=== PATIENT | female | born 1950 | race Caucasian/White ===

== ENCOUNTER → 2017-01-06 | Outpatient (CLI) | payer OTHER ==
--- NOTE | 2017-01-06 16:32 | CT ---
EXAMINATION TYPE: CT brain wo con DATE OF EXAM: 01/06/2017 COMPARISON: NONE HISTORY: 66-year-old female Posterior injury on 01/02/17. Complains of headache and pressure TECHNIQUE: Examination was done in axial plane without intravenous contrast. Coronal and sagittal r econstructions performed. CT DLP: 1036 mGycm Automated exposure control for dose reduction was used. FINDINGS: There is no evidence of acute intracranial hemorrhage, acute ischemic changes, mass, mass-effect, or extra-axial fluid collection. There is no effacement of cerebral sulci or basal subarachnoid cister ns. There is no hydrocephalus. There is no midline shift. Christine-white matter distinction is preserv ed. Paranasal sinuses and mastoid air cells are well pneumatized. Orbits and globes are intact. IMPRESSION: No acute intracranial abnormality seen.
--- NOTE | 2017-01-07 22:26 | XR ---
EXAMINATION TYPE: XR cervical spine comp DATE OF EXAM: 01/06/2017 COMPARISON: NONE HISTORY: 66 year-old female post traumatic intractable headache TECHNIQUE: 6 years FINDINGS: There is facet and uncovertebral joint arthropathy particularly in the mid to lower cervical spine. O n the right, this contributes to mild to moderate bony spondylotic neuroforaminal narrowing at C6-C7. On the left, there is moderate neuroforaminal narrowing at C6-C7 and mild at C7-T1. Moderate disc/endplate degenerative change particularly at C6-C7. Alignment is maintained. No predent al space widening or prevertebral soft tissue swelling. On the odontoid view, the C1 and C2 lateral masses are aligned. IMPRESSION: Moderate spondylotic change especially in the mid to lower cervical spine with variable mild to moder ate neuroforaminal narrowing, greatest on the left at C6-C7.
== END | disposition home or self-care (01) ==
LOC: RADCTMAIN 15:48
PROVIDERS: ATTEND Internal Medicine Geriatric Medicine
DX: M99.71 Connective tissue and disc stenosis of intervertebral foramina of cervical region (principal); M47.812 Spondylosis without myelopathy or radiculopathy, cervical region; G44.311 Acute post-traumatic headache, intractable
CPT/HCPCS: 70450; 72050

== ENCOUNTER 2018-10-20 19:46 | Observation (INO) | payer MEDICARE, OTHER ==
[2018-10-20] MEDS ORDERED: MORPHINE SULFATE 4 MG/ML SYRINGE IV STA (21:10)
[2018-10-20] MEDS ORDERED: SODIUM CHLORIDE 0.9% 1,000 ML IV STA (21:10)
[2018-10-20 22:05] LABS: Basophils % (A) 0 %; Eosinophils # (A) 0.1 k/uL (0-0.7); Eosinophils % (A) 1 %; HCT 36.7 % (34.0-46.0); HGB 12.3 gm/dL (11.4-16.0); Lymphocytes # (A) 1.2 k/uL (1.0-4.8); Lymphocytes % (A) 10 %; MCH 28.8 pg (25.0-35.0); MCHC 33.4 g/dL (31.0-37.0); MCV 86.2 fL (80.0-100.0); Monocytes # (A) 0.7 k/uL (0-1.0); Monocytes % (A) 6 %; Neutrophils # (A) 10.2 k/uL (1.3-7.7); Neutrophils % (A) 81 %; Platelet Count 275 k/uL (150-450); RBC 4.26 m/uL (3.80-5.40); RDW 13.3 % (11.5-15.5); WBC 12.5 k/uL (3.8-10.6)
[2018-10-20 22:16] LABS: ALT 27 U/L (9-52); AST 21 U/L (14-36); African American GFR (CKD) >90 (>60 ml/min/1.73 sqM); Alkaline Phosphatase 146 U/L (38-126); Anion Gap 11 mmol/L; Blood Urea Nitrogen 12 mg/dL (7-17); Calcium 9.2 mg/dL (8.4-10.2); Carbon Dioxide 26 mmol/L (22-30); Chloride 97 mmol/L (98-107); Glucose 106 mg/dL (74-99); Potassium 4.5 mmol/L (3.5-5.1); Sodium 134 mmol/L (137-145); Total Bilirubin 0.7 mg/dL (0.2-1.3); Total Protein 6.7 g/dL (6.3-8.2)
--- NOTE | 2018-10-20 23:02 | CT ---
EXAM: CT Abdomen and Pelvis With Intravenous Contrast CLINICAL HISTORY: ITS.REASON CT Reason: abdominal pain TECHNIQUE: Axial computed tomography images of the abdomen and pelvis with intravenous contrast. CTDI is 21 mGy and DLP is 1027 mGy-cm. This CT exam was performed using one or more of the following dose reduction techniques: automated exposure control, adjustment of the mA and/or kV according to patient size, and/or use of iterative reconstruction technique. COMPARISON: 09/20/12 FINDINGS: Lung bases: Unremarkable. No mass. No consolidation. ABDOMEN: Liver: Unremarkable. No mass. Gallbladder and bile ducts: Unremarkable. No calcified stones. No ductal dilation. Pancreas: Unremarkable. No mass. No ductal dilation. Spleen: Unremarkable. No splenomegaly. Adrenals: Unremarkable. No mass. Kidneys and ureters: Unremarkable. No solid mass. No hydronephrosis. Stomach and bowel: Abnormal wall thickening and inflammatory changes surrounding numerous diverticula in the distal descending and sigmoid colon compatible with diverticulitis. Large duodenal diverticulum. No obstruction. PELVIS: Appendix: No findings to suggest acute appendicitis. Bladder: Unremarkable. No mass. Reproductive: Unremarkable as visualized. ABDOMEN and PELVIS: Intraperitoneal space: Unremarkable. No free air. No significant fluid collection. Bones/joints: No acute fracture. No dislocation. Soft tissues: Unremarkable. Vasculature: Unremarkable. No abdominal aortic aneurysm. Lymph nodes: Unremarkable. No enlarged lymph nodes. IMPRESSION: Acute diverticulitis involving the distal descending and sigmoid colon. No evidence of perforation or abscess. Large duodenal diverticulum.
[2018-10-20 23:11] LABS: Appearance,Urine Clear (Clear); Bilirubin,Urine Negative (Negative); Blood,Urine Negative (Negative); Color,Urine Light Yellow; Glucose,Urine (UA) Negative (Negative); Ketones,Urine 1+ (Negative); Leukocyte Esterase,Urine Negative (Negative); Nitrite,Urine Negative (Negative); Protein,Urine Negative (Negative); Specific Gravity,Urine 1.013 (1.001-1.035); Urobilinogen,Urine <2.0 mg/dL (<2.0)
[2018-10-20] MEDS ORDERED: NALOXONE 0.4 MG/ML 1 ML VIAL IV PRN (23:44)
--- NOTE | 2018-10-20 23:47 | ED ---
General Adult HPI - General Chief complaint: Abdominal Pain Stated complaint: Abd pain Time Seen by Provider: 10/20/18 20:44 Source: patient, RN notes reviewed, old records reviewed Mode of arrival: ambulatory Limitations: no limitations - History of Present Illness Initial comments: 67-year-old female patient presents to ED with 5 days of left lower quadrant pain. Patient does have a history of diverticulitis, states this feels similar. Patient also reports some waxing and waning fevers and chills. Denies any other complaints at this time. Systemic: Pt denies fatigue, rash. Pt denies weakness, night sweats, weight loss. Neuro: Pt denies headache, visual disturbances, syncope or pre-syncope. HEENT: Pt denies ocular discharge or irritation, otalgia, rhinorrhea, pharyngitis or notable lymphadenopathy. Cardiopulmonary: Pt denies chest pain, SOB, heart palpitations, dyspnea on exertion. Abdominal/GI: Pt denies n/v/d. : Pt denies dysuria, burning w/ urination, frequency/urgency. Denies new onset urinary or bowel incontinence. MSK: Pt denies myalgia, loss of strength or function in extremities. Neuro: Pt denies new onset weakness, paresthesias. - Related Data Home Medications Medication Instructions Recorded Confirmed ALPRAZolam [Xanax] 0.25 mg PO BID PRN 11/16/14 11/16/14 Acetaminophen Tab [Tylenol] 500 mg PO Q6H PRN 11/16/14 11/16/14 Azilsartan Medoxomil [Edarbi] 40 mg PO DAILY 11/16/14 11/16/14 Hydrocortisone Cream 1 applic TOPICAL BID PRN 11/16/14 11/16/14 [Hydrocortisone 2.5% Cream] Spironolactone [Aldactone] 25 mg PO DAILY 11/16/14 11/16/14 Previous Rx's Medication Instructions Recorded Loratadine [Claritin] 10 mg PO DAILY tab 11/18/14 Nebivolol [Bystolic] 5 mg PO DAILY #30 tab 11/18/14 Allergies Allergy/AdvReac Type Severity Reaction Status Date / Time codeine Allergy Itching Verified 10/20/18 20:08 Penicillins Allergy Rash/Hives Verified 10/20/18 20:08 Sulfa (Sulfonamide Allergy Unknown Verified 10/20/18 20:08 Antibiotics) Review of Systems ROS Statement: Those systems with pertinent positive or pertinent negative responses have been documented in the HPI. ROS Other: All systems not noted in ROS Statement are negative. Past Medical History Past Medical History: Chest Pain / Angina, Hyperlipidemia, Hypertension, Osteoarthritis (OA), Sleep Apnea/CPAP/BIPAP Additional Past Medical History / Comment(s): Recurrent urinary tract infections.diverticulosis History of Any Multi-Drug Resistant Organisms: None Reported Past Surgical History: Appendectomy, Heart Catheterization, Tonsillectomy Additional Past Surgical History / Comment(s): exploratory lap, tubal ligation. Past Anesthesia/Blood Transfusion Reactions: Previous Problems w/ Anesthesia Additional Past Anesthesia/Blood Transfusion Reaction / Comment(s): STATES HARD TO WAKE UP AFTER COLONOSCOPY Past Psychological History: No Psychological Hx Reported Smoking Status: Never smoker Past Alcohol Use History: Occasional Past Drug Use History: None Reported - Past Family History Mother Family Medical History: Coronary Artery Disease (CAD) (Mother at age of 60 from the CAD she had a PCI), Myocardial Infarction ([place]) Additional Family Medical History / Comment(s): ANGIOPLASTY Father Family Medical History: Coronary Artery Disease (CAD) (Father at age of 58 from CAD/[place]), Myocardial Infarction ([place]) Additional Family Medical History / Comment(s): ANGIOPLASTY Sister(s) Family Medical History: No Reported History (Patient has 2 sisters no major medical problems) Brother(s) Family Medical History: Coronary Artery Disease (CAD) (Patient had 2 brothers one of them after CABG) Son(s) Family Medical History: No Reported History (Patient has 2 boys no major medical problems.) General Exam - General Exam Comments Initial Comments: Constitutional: NAD, AOX3, Pt has pleasant affect. HEENT: NC/AT, trachea midline, neck supple, no lymphadenopathy. Posterior pharynx non erythematous, without exudates. External ears appear normal, without discharge. Mucous membranes moist. Eyes PERRLA, EOM intact. There is no scleral icterus. No pallor noted. Cardiopulmonary: RRR, no murmurs, rubs or gallops, no JVD noted. Lungs CTAB in anterior and posterior cuellar. No peripheral edema. Abdominal exam: Abdomen soft and non-distended. Abdomen moderately tender to palpation left lower quadrant, mild guarding, no rigidity.. Bowel sounds active in LLQ. No hepatosplenomegaly. No ecchymosis Neuro: CN II-XII grossly intact. No nuchal rigidity. No raccon eyes, no martell sign, no hemotympanum. No cervical spinal tenderness. MSK: No posterior calf tenderness bilaterally, homans sign negative bilaterally. Posterior tibialis and radial pulse +2 bilaterally. Sensation intact in upper and lower extremities. Full active ROM in upper and lower extremities, 5/5 stregnth. Limitations: no limitations Course Vital Signs 10/20/18 20:04 Temperature 99.0 F Pulse Rate 102 H Respiratory 17 Rate Blood Pressure 157/87 O2 Sat by Pulse 98 Oximetry Medical Decision Making - Medical Decision Making 67-year-old female patient presents to ED with 5 days of left lower quadrant pain. Patient does have a history of diverticulitis, states this feels similar. Patient also reports some waxing and waning fevers and chills. Denies any other complaints at this time. Patient also has stable, afebrile. Physical exam displayed: Abdomen soft and non-distended. Abdomen moderately tender to palpation left lower quadrant, mild guarding, no rigidity.. Bowel sounds active in LLQ. No hepatosplenomegaly. No ecchymosis. Left investigation revealed mild cytosis 12.5. CMP non-impressive. UA negative. CT abdomen and pelvis displayed acute diverticulitis involving the distal descending and sigmoid colon, no evidence of perforation or abscess. Patient will be admitted for further evaluation and IV antibiotics. Case discussed with Dr. Poe. - Lab Data Result diagrams: 10/20/18 21:47 10/20/18 21:47 Lab Results 10/20/18 10/20/18 10/20/18 Range/Units 21:47 21:47 21:47 WBC 12.5 H (3.8-10.6) k/uL RBC 4.26 (3.80-5.40) m/uL Hgb 12.3 (11.4-16.0) gm/dL Hct 36.7 (34.0-46.0) % MCV 86.2 (80.0-100.0) fL MCH 28.8 (25.0-35.0) pg MCHC 33.4 (31.0-37.0) g/dL RDW 13.3 (11.5-15.5) % Plt Count 275 (150-450) k/uL Neutrophils % 81 % Lymphocytes % 10 % Monocytes % 6 % Eosinophils % 1 % Basophils % 0 % Neutrophils # 10.2 H (1.3-7.7) k/uL Lymphocytes # 1.2 (1.0-4.8) k/uL Monocytes # 0.7 (0-1.0) k/uL Eosinophils # 0.1 (0-0.7) k/uL Basophils # 0.0 (0-0.2) k/uL Sodium 134 L (137-145) mmol/L Potassium 4.5 (3.5-5.1) mmol/L Chloride 97 L (98-107) mmol/L Carbon Dioxide 26 (22-30) mmol/L Anion Gap 11 mmol/L BUN 12 (7-17) mg/dL Creatinine 0.65 (0.52-1.04) mg/dL Est GFR (CKD-EPI)AfAm >90 (>60 ml/min/1.73 sqM) Est GFR (CKD-EPI)NonAf >90 (>60 ml/min/1.73 sqM) Glucose 106 H (74-99) mg/dL Plasma Lactic Acid Lester 0.8 (0.7-2.0) mmol/L Calcium 9.2 (8.4-10.2) mg/dL Total Bilirubin 0.7 (0.2-1.3) mg/dL AST 21 (14-36) U/L ALT 27 (9-52) U/L Alkaline Phosphatase 146 H (38-126) U/L Total Protein 6.7 (6.3-8.2) g/dL Albumin 4.0 (3.5-5.0) g/dL Lipase 40 (23-300) U/L Urine Color Urine Appearance (Clear) Urine pH (5.0-8.0) Ur Specific [place] (1.001-1.035) Urine Protein (Negative) Urine Glucose (UA) (Negative) Urine Ketones (Negative) Urine Blood (Negative) Urine Nitrite (Negative) Urine Bilirubin (Negative) Urine Urobilinogen (<2.0) mg/dL Ur Leukocyte Esterase (Negative) 10/20/18 Range/Units 22:55 WBC (3.8-10.6) k/uL RBC (3.80-5.40) m/uL Hgb (11.4-16.0) gm/dL Hct (34.0-46.0) % MCV (80.0-100.0) fL MCH (25.0-35.0) pg MCHC (31.0-37.0) g/dL RDW (11.5-15.5) % Plt Count (150-450) k/uL Neutrophils % % Lymphocytes % % Monocytes % % Eosinophils % % Basophils % % Neutrophils # (1.3-7.7) k/uL Lymphocytes # (1.0-4.8) k/uL Monocytes # (0-1.0) k/uL Eosinophils # (0-0.7) k/uL Basophils # (0-0.2) k/uL Sodium (137-145) mmol/L Potassium (3.5-5.1) mmol/L Chloride (98-107) mmol/L Carbon Dioxide (22-30) mmol/L Anion Gap mmol/L BUN (7-17) mg/dL Creatinine (0.52-1.04) mg/dL Est GFR (CKD-EPI)AfAm (>60 ml/min/1.73 sqM) Est GFR (CKD-EPI)NonAf (>60 ml/min/1.73 sqM) Glucose (74-99) mg/dL Plasma Lactic Acid Lester (0.7-2.0) mmol/L Calcium (8.4-10.2) mg/dL Total Bilirubin (0.2-1.3) mg/dL AST (14-36) U/L ALT (9-52) U/L Alkaline Phosphatase (38-126) U/L Total Protein (6.3-8.2) g/dL Albumin (3.5-5.0) g/dL Lipase (23-300) U/L Urine Color Light Yellow Urine Appearance Clear (Clear) Urine pH 7.0 (5.0-8.0) Ur Specific [place] 1.013 (1.001-1.035) Urine Protein Negative (Negative) Urine Glucose (UA) Negative (Negative) Urine Ketones 1+ H (Negative) Urine Blood Negative (Negative) Urine Nitrite Negative (Negative) Urine Bilirubin Negative (Negative) Urine Urobilinogen <2.0 (<2.0) mg/dL Ur Leukocyte Esterase Negative (Negative) Disposition Clinical Impression: Acute diverticulitis Disposition: ADMITTED IP TO THIS HOSP Condition: Fair Is patient prescribed a controlled substance at d/c from ED?: No Referrals: Russel Alva MD [Primary Care Provider] - 1-2 days
[2018-10-21] MEDS ORDERED: MORPHINE SULFATE 4 MG/ML SYRINGE IV PRN
[2018-10-21] MEDS: SODIUM CHLORIDE 0.9% 1,000 ML IV SCH ×2 (00:19→10:13)
[2018-10-21] MEDS: LEVOFLOXACIN 750MG-D5W PMX 750 MG in DEXTROSE/WATER 1 150ML.BAG IVPB SCH (00:20)
[2018-10-21 01:51] VITALS: BMI 32.8
[2018-10-21] MEDS: metroNIDAZOLE-NS PMX 500 MG in SALINE 1 100ML.BAG IVPB SCH ×3 (01:59→17:26)
[2018-10-21 08:41] LABS: ALT 28 U/L (9-52); AST 16 U/L (14-36); African American GFR (CKD) >90 (>60 ml/min/1.73 sqM); Albumin 3.3 g/dL (3.5-5.0); Alkaline Phosphatase 108 U/L (38-126); Anion Gap 8 mmol/L; Blood Urea Nitrogen 8 mg/dL (7-17); Calcium 8.5 mg/dL (8.4-10.2); Carbon Dioxide 27 mmol/L (22-30); Chloride 103 mmol/L (98-107); Glucose 94 mg/dL (74-99); Potassium 4.3 mmol/L (3.5-5.1); Sodium 138 mmol/L (137-145); Total Bilirubin 0.6 mg/dL (0.2-1.3); Total Protein 5.9 g/dL (6.3-8.2)
[2018-10-21 08:56] LABS: Basophils % (A) 0 %; Eosinophils # (A) 0.1 k/uL (0-0.7); Eosinophils % (A) 1 %; HCT 33.5 % (34.0-46.0); HGB 10.9 gm/dL (11.4-16.0); Lymphocytes # (A) 1.1 k/uL (1.0-4.8); Lymphocytes % (A) 13 %; MCH 29.2 pg (25.0-35.0); MCHC 32.6 g/dL (31.0-37.0); MCV 89.4 fL (80.0-100.0); Mean Platelet Volume 7.3; Monocytes # (A) 0.6 k/uL (0-1.0); Monocytes % (A) 7 %; Neutrophils # (A) 6.8 k/uL (1.3-7.7); Neutrophils % (A) 78 %; Platelet Count 253 k/uL (150-450); RBC 3.74 m/uL (3.80-5.40); RDW 14.1 % (11.5-15.5); WBC 8.7 k/uL (3.8-10.6)
[2018-10-21] MEDS ORDERED: ALPRAZolam 0.25 MG TAB PO PRN (18:28)
--- NOTE | 2018-10-21 18:34 | P.HPIM ---
History of Present Illness H&P Date: 10/21/18 Chief Complaint: Left lower quadrant abdominal pain This 67-year-old pleasant lady, follows with Dr. Alva, has underlying history off hypertension, and hypertensive cardiovascular disease, history of sleep apnea not currently on CPAP, and diverticular disease, family history of colon cancer on the mother. Admitted to the emergency room secondary to a 5 day episode of abdominal pain, left lower quadrant area, with colicky features, denies any melena or hematochezia, she has some fever and chills, she was seen in urgent care yesterday, was given Cipro and Flagyl for which patient took a days worth of doses, patient did not respond as quickly as she hadn't the past, now requiring ER evaluation secondary to increasing severity of abdominal pain. Her last colonoscopy was 5 years ago by elastic assembler Dr. Roblero at [facility] and is due to have one done in December 2018. In the emergency room CAT scan of the abdomen was performed, gallbladder is unremarkable without ductal dilatation, pancreas is normal, spleen and adrenals normal, kidneys ureter are normal, there is abnormal wall thickening and inflammatory changes surrounding diverticula in the distal descending and sigmoid colon compatible with diverticulitis, there is a large duodenal diverticula no obstruction no perforation no lymphadenopathy Review of Systems Constitutional: Reports anorexia, Reports chills, Reports fever, Reports night sweats, Reports poor appetite Ears, nose, mouth and throat: Reports as per HPI, Denies ant. neck pain, Denies bleeding gums, Denies dental pain, Denies dysphagia, Denies epistaxis, Denies headache, Denies hoarseness, Denies mouth pain, Denies nasal congestion, Denies nasal discharge, Denies neck fullness/pressure, Denies neck lump, Denies nose pain, Denies odynophagia, Denies post-nasal drip, Denies sinus pain, Denies sinus pressure, Denies swelling in mouth, Denies swelling in throat, Denies sore throat, Denies vertigo, Denies voice changes Cardiovascular: Reports as per HPI, Denies chest pain, Denies claudication, Denies decreased exercise tolerance, Denies dyspnea on exertion, Denies edema, Denies high blood pressure, Denies irregular heart beat, Denies leg edema, Denies lightheadedness, Denies orthopnea, Denies palpitations, Denies paroxysmal nocturnal dyspnea, Denies phlebitis, Denies rapid heart beat, Denies shortness of breath, Denies syncope Gastrointestinal: Reports as per HPI, Reports abdominal pain (Left lower quadrant), Reports nausea Genitourinary: Reports as per HPI Menstruation: Reports as per HPI, Reports postmenopausal Musculoskeletal: Reports as per HPI Integumentary: Reports as per HPI Neurological: Reports as per HPI Psychiatric: Reports as per HPI Endocrine: Reports as per HPI Hematologic/Lymphatic: Reports as per HPI Allergic/Immunologic: Reports as per HPI Past Medical History Past Medical History: Chest Pain / Angina, Hyperlipidemia, Hypertension, Osteoarthritis (OA), Sleep Apnea/CPAP/BIPAP Additional Past Medical History / Comment(s): Recurrent urinary tract infections.diverticulosis History of Any Multi-Drug Resistant Organisms: None Reported Past Surgical History: Appendectomy, Heart Catheterization, Tonsillectomy Additional Past Surgical History / Comment(s): exploratory lap, tubal ligation. Past Anesthesia/Blood Transfusion Reactions: Previous Problems w/ Anesthesia Additional Past Anesthesia/Blood Transfusion Reaction / Comment(s): STATES HARD TO WAKE UP AFTER COLONOSCOPY Past Psychological History: No Psychological Hx Reported Smoking Status: Never smoker Past Alcohol Use History: Occasional Past Drug Use History: None Reported - Past Family History Mother Family Medical History: Cancer (: Cancer of colon), Coronary Artery Disease (CAD), Myocardial Infarction ([place]) Additional Family Medical History / Comment(s): ANGIOPLASTY Father Family Medical History: Coronary Artery Disease (CAD), Myocardial Infarction ([place]) Additional Family Medical History / Comment(s): ANGIOPLASTY Sister(s) Family Medical History: No Reported History Brother(s) Family Medical History: Coronary Artery Disease (CAD) Son(s) Family Medical History: No Reported History Medications and Allergies Home Medications Medication Instructions Recorded Confirmed Type Acetaminophen Tab [Tylenol] 500 mg PO Q6H PRN 11/16/14 10/21/18 History ALPRAZolam [Xanax] 0.5 - 1 tab PO DAILY PRN 10/21/18 10/21/18 History Ciprofloxacin HCl [Cipro] 500 mg PO BID 10/21/18 10/21/18 History Ibuprofen [Motrin] 600 mg PO TID PRN 10/21/18 10/21/18 History amLODIPine BESYLATE [Norvasc] 2.5 mg PO DAILY 10/21/18 10/21/18 History metroNIDAZOLE [Flagyl] 500 mg PO TID 10/21/18 10/21/18 History Allergies Allergy/AdvReac Type Severity Reaction Status Date / Time codeine Allergy Itching Verified 10/21/18 08:46 Penicillins Allergy Rash/Hives Verified 10/21/18 08:46 Sulfa (Sulfonamide Allergy Unknown Verified 10/21/18 08:46 Antibiotics) Physical Exam Vitals: Vital Signs Temp Pulse Pulse Resp BP BP BP 10/21/18 14:49 98.3 F 82 16 132/77 10/21/18 07:30 98.3 F 84 16 127/78 10/21/18 01:54 98.3 F 88 18 134/82 10/21/18 01:20 98.3 F 82 18 148/72 10/21/18 00:20 98.8 F 71 18 148/82 10/20/18 20:04 99.0 F 102 H 17 157/87 Pulse Ox 10/21/18 14:49 95 10/21/18 07:30 94 L 10/21/18 01:54 96 10/21/18 01:20 99 10/21/18 00:20 99 10/20/18 20:04 98 Intake and Output 10/21/18 10/21/18 10/21/18 06:59 14:59 22:59 Intake Total 480 960 Balance 480 960 Intake: IV 960 Sodium Chloride 0.9% 1, 960 000 ml @ 120 mls/hr IV . Q8H20M [facility]INA Rx#:[id number] Intake, IV Titration 480 Amount Sodium Chloride 0.9% 1, 480 000 ml @ 120 mls/hr IV . Q8H20M [facility]INA Rx#:[id number] Other: # Voids 1 3 - Constitutional General appearance: cooperative, no acute distress, obese - EENT Eyes: anicteric sclerae, EOMI, PERRLA, normal appearance ENT: hearing grossly normal, NA/AT, normal oropharynx - Neck Neck: normal ROM - Respiratory Respiratory: bilateral: CTA, negative: diminished, dullness - Cardiovascular Rhythm: regular Heart sounds: normal: S1, S2 - Gastrointestinal General gastrointestinal: normal bowel sounds, soft, tenderness (Left lower quadrant) - Integumentary Integumentary: decreased turgor, normal - Neurologic Neurologic: CNII-XII intact - Musculoskeletal Musculoskeletal: gait normal - Psychiatric Psychiatric: A&O x's 3, appropriate affect, intact judgment & insight Results CBC & Chem 7: 10/21/18 07:59 10/21/18 07:59 Labs: Abnormal Lab Results - Last 24 Hours (Table) 10/20/18 10/20/18 10/20/18 Range/Units 21:47 21:47 22:55 WBC 12.5 H (3.8-10.6) k/uL RBC (3.80-5.40) m/uL Hgb (11.4-16.0) gm/dL Hct (34.0-46.0) % Neutrophils # 10.2 H (1.3-7.7) k/uL Sodium 134 L (137-145) mmol/L Chloride 97 L (98-107) mmol/L Glucose 106 H (74-99) mg/dL Alkaline Phosphatase 146 H (38-126) U/L Total Protein (6.3-8.2) g/dL Albumin (3.5-5.0) g/dL Urine Ketones 1+ H (Negative) 10/21/18 10/21/18 Range/Units 07:59 07:59 WBC (3.8-10.6) k/uL RBC 3.74 L (3.80-5.40) m/uL Hgb 10.9 L (11.4-16.0) gm/dL Hct 33.5 L (34.0-46.0) % Neutrophils # (1.3-7.7) k/uL Sodium (137-145) mmol/L Chloride (98-107) mmol/L Glucose (74-99) mg/dL Alkaline Phosphatase (38-126) U/L Total Protein 5.9 L (6.3-8.2) g/dL Albumin 3.3 L (3.5-5.0) g/dL Urine Ketones (Negative) Laboratory Results WBC 8.7 k/uL (3.8-10.6) 10/21/18 07:59 RBC 3.74 m/uL (3.80-5.40) L 10/21/18 07:59 Hgb 10.9 gm/dL (11.4-16.0) L 10/21/18 07:59 Hct 33.5 % (34.0-46.0) L 10/21/18 07:59 MCV 89.4 fL (80.0-100.0) 10/21/18 07:59 MCH 29.2 pg (25.0-35.0) 10/21/18 07:59 MCHC 32.6 g/dL (31.0-37.0) 10/21/18 07:59 RDW 14.1 % (11.5-15.5) 10/21/18 07:59 Plt Count 253 k/uL (150-450) 10/21/18 07:59 Neutrophils % 78 % 10/21/18 07:59 Lymphocytes % 13 % 10/21/18 07:59 Monocytes % 7 % 10/21/18 07:59 Eosinophils % 1 % 10/21/18 07:59 Basophils % 0 % 10/21/18 07:59 Neutrophils # 6.8 k/uL (1.3-7.7) 10/21/18 07:59 Lymphocytes # 1.1 k/uL (1.0-4.8) 10/21/18 07:59 Monocytes # 0.6 k/uL (0-1.0) 10/21/18 07:59 Eosinophils # 0.1 k/uL (0-0.7) 10/21/18 07:59 Basophils # 0.0 k/uL (0-0.2) 10/21/18 07:59 Sodium 138 mmol/L (137-145) 10/21/18 07:59 Potassium 4.3 mmol/L (3.5-5.1) 10/21/18 07:59 Chloride 103 mmol/L (98-107) 10/21/18 07:59 Carbon Dioxide 27 mmol/L (22-30) 10/21/18 07:59 Anion Gap 8 mmol/L 10/21/18 07:59 BUN 8 mg/dL (7-17) 10/21/18 07:59 Creatinine 0.66 mg/dL (0.52-1.04) 10/21/18 07:59 Est GFR (CKD-EPI)AfAm >90 (>60 ml/min/1.73 sqM) 10/21/18 07:59 Est GFR (CKD-EPI)NonAf >90 (>60 ml/min/1.73 sqM) 10/21/18 07:59 Glucose 94 mg/dL (74-99) 10/21/18 07:59 Plasma Lactic Acid Lester 0.8 mmol/L (0.7-2.0) 10/20/18 21:47 Calcium 8.5 mg/dL (8.4-10.2) 10/21/18 07:59 Total Bilirubin 0.6 mg/dL (0.2-1.3) 10/21/18 07:59 AST 16 U/L (14-36) 10/21/18 07:59 ALT 28 U/L (9-52) 10/21/18 07:59 Alkaline Phosphatase 108 U/L (38-126) 10/21/18 07:59 Total Protein 5.9 g/dL (6.3-8.2) L 10/21/18 07:59 Albumin 3.3 g/dL (3.5-5.0) L 10/21/18 07:59 Lipase 40 U/L (23-300) 10/20/18 21:47 Urine Color Light Yellow 10/20/18 22:55 Urine Appearance Clear (Clear) 10/20/18 22:55 Urine pH 7.0 (5.0-8.0) 10/20/18 22:55 Ur Specific [place] 1.013 (1.001-1.035) 10/20/18 22:55 Urine Protein Negative (Negative) 10/20/18 22:55 Urine Glucose (UA) Negative (Negative) 10/20/18 22:55 Urine Ketones 1+ (Negative) H 10/20/18 22:55 Urine Blood Negative (Negative) 10/20/18 22:55 Urine Nitrite Negative (Negative) 10/20/18 22:55 Urine Bilirubin Negative (Negative) 10/20/18 22:55 Urine Urobilinogen <2.0 mg/dL (<2.0) 10/20/18 22:55 Ur Leukocyte Esterase Negative (Negative) 10/20/18 22:55 Thrombosis Risk Factor Assmnt - Choose All That Apply Any of the Below Risk Factors Present?: No Other Risk Factors: Yes Each Risk Factor Represents 2 Points: Age 61-74 years Thrombosis Risk Factor Assessment Total Risk Factor Score: 2 Thrombosis Risk Factor Assessment Level: Low Risk Assessment and Plan Plan: 1. Acute diverticulitis off the sigmoid and descending colon, without perforation, without abscess, without bleed patient currently is nothing by mouth and we'll going to start clear liquid diet, IV Levaquin and IV Flagyl 2 controlled hypertension we will continue the patient on amlodipine 2.5 mg daily 2. Hypertension, on maintenance Norvasc 2.5 mg daily, 3. Hyperlipidemia. Continue low cholesterol diet follow 4. Obesity with obstructive sleep apnea. Not on CPAP device at home 5. Recurrent urinary tract infection. No UTI this point. 6. Prior history off expiratory lap, secondary to ovarian cyst 7 Family history of colon cancer on the mother, colonoscopy due in December 2018, previous ones were normal, 5 units of all screening, Dr. Romeo Santiago for gastroenterology, patient's contemplating on possibly moving it to our local physicians, 8. Generalized anxiety disorder on when necessary alprazolam prior to admission 8 DVT prophylaxis. Early ambulation. 9 Observational status.
[2018-10-21] MEDS ORDERED: ONDANSETRON 4 MG/2 ML VIAL IVP PRN (19:02)
[2018-10-21] MEDS ORDERED: MELATONIN 3 MG TABLET PO PRN (19:04)
[2018-10-21] MEDS ORDERED: amLODIPine 2.5 MG TAB PO STA (19:05)
[2018-10-22] MEDS: LEVOFLOXACIN 750MG-D5W PMX 750 MG in DEXTROSE/WATER 1 150ML.BAG IVPB SCH (00:15)
[2018-10-22] MEDS: SODIUM CHLORIDE 0.9% 1,000 ML IV SCH ×4 (01:59→13:20)
[2018-10-22] MEDS: metroNIDAZOLE-NS PMX 500 MG in SALINE 1 100ML.BAG IVPB SCH ×2 (02:07→11:52)
[2018-10-22] MEDS: amLODIPine 2.5 MG TAB PO SCH (08:39)
[2018-10-22 09:53] LABS: Basophils % (A) 0 %; Eosinophils # (A) 0.1 k/uL (0-0.7); Eosinophils % (A) 1 %; HCT 32.4 % (34.0-46.0); HGB 10.3 gm/dL (11.4-16.0); Lymphocytes # (A) 0.9 k/uL (1.0-4.8); Lymphocytes % (A) 11 %; MCH 28.1 pg (25.0-35.0); MCHC 31.8 g/dL (31.0-37.0); MCV 88.3 fL (80.0-100.0); Monocytes # (A) 0.5 k/uL (0-1.0); Monocytes % (A) 7 %; Neutrophils # (A) 5.9 k/uL (1.3-7.7); Neutrophils % (A) 79 %; Platelet Count 279 k/uL (150-450); RBC 3.67 m/uL (3.80-5.40); RDW 13.5 % (11.5-15.5); WBC 7.5 k/uL (3.8-10.6)
[2018-10-22 09:56] LABS: ALT 22 U/L (9-52); AST 14 U/L (14-36); African American GFR (CKD) >90 (>60 ml/min/1.73 sqM); Albumin 3.2 g/dL (3.5-5.0); Alkaline Phosphatase 102 U/L (38-126); Anion Gap 7 mmol/L; Blood Urea Nitrogen 6 mg/dL (7-17); Calcium 8.4 mg/dL (8.4-10.2); Carbon Dioxide 27 mmol/L (22-30); Chloride 103 mmol/L (98-107); Glucose 123 mg/dL (74-99); Potassium 4.1 mmol/L (3.5-5.1); Sodium 137 mmol/L (137-145); Total Bilirubin 0.5 mg/dL (0.2-1.3); Total Protein 5.7 g/dL (6.3-8.2)
[2018-10-22] MEDS ORDERED: ACETAMINOPHEN TAB 325 MG TAB PO PRN (11:48)
[2018-10-22] MEDS: TRIAMCINOLONE 0.1% CREAM 80 GM TUBE TOPICAL SCH ×2 (13:20→21:14)
--- NOTE | 2018-10-22 15:03 | P.PN ---
Subjective Progress Note Date: 10/22/18 This 67-year-old pleasant lady, follows with Dr. Alva, has underlying history off hypertension, and hypertensive cardiovascular disease, history of sleep apnea not currently on CPAP, and diverticular disease, family history of colon cancer on the mother. Admitted to the emergency room secondary to a 5 day episode of abdominal pain, left lower quadrant area, with colicky features, denies any melena or hematochezia, she has some fever and chills, she was seen in urgent care yesterday, was given Cipro and Flagyl for which patient took a days worth of doses, patient did not respond as quickly as she hadn't the past, now requiring ER evaluation secondary to increasing severity of abdominal pain. Her last colonoscopy was 5 years ago by chemical processing laborer Dr. Roblero at [facility] and is due to have one done in December 2018. In the emergency room CAT scan of the abdomen was performed, gallbladder is unremarkable without ductal dilatation, pancreas is normal, spleen and adrenals normal, kidneys ureter are normal, there is abnormal wall thickening and inflammatory changes surrounding diverticula in the distal descending and sigmoid colon compatible with diverticulitis, there is a large duodenal diverticula no obstruction no perforation no lymphadenopathy 10/22: Patient is complaining of a rash to her back and chest. She states it is mostly itchy but there are some areas that are burning type pain. She also complaining of burning in the labial area. No rash was noted there. Patient states she thinks she may have problems taking Levaquin in the past and had a reaction. She also states that she may have had a reaction the past to Keflex. We will ask Dr. Mercado for antibiotic recommendations. Patient continues to have soreness in the left lower quadrant. She has been afebrile, blood pressure 135/75, heart rate 87, pulse ox 94% on room air. She is currently tolerating cl ear liquid diet which will be continued for now. Hemoglobin 10.3, white count is 7.5, platelet count 279. Blood sugar 123. Electrolytes within normal limits. Objective - Vital Signs Vital signs: Vital Signs Temp 98.1 F 10/22/18 07:00 Pulse 87 10/22/18 07:00 Resp 16 10/22/18 07:00 BP 135/75 10/22/18 07:00 Pulse Ox 94 L 10/22/18 07:00 Intake & Output 10/21/18 10/22/18 10/22/18 18:59 06:59 18:59 Intake Total 960 1300 Balance 960 1300 Intake: IV 960 Sodium Chloride 0.9% 1, 960 000 ml @ 120 mls/hr IV . Q8H20M MARINA Rx#:[id number] Intake, IV Titration 1200 Amount Sodium Chloride 0.9% 1, 1200 000 ml @ 120 mls/hr IV . Q8H20M MARINA Rx#:[id number] Oral 100 Other: # Voids 3 5 - Exam Review of Systems Constitutional: Reports anorexia, Reports chills, Reports fever, Reports night sweats, Reports poor appetite Ears, nose, mouth and throat: Reports as per HPI, Denies ant. neck pain, Denies bleeding gums, Denies dental pain, Denies dysphagia, Denies epistaxis, Denies headache, Denies hoarseness, Denies mouth pain, Denies nasal congestion, Denies nasal discharge, Denies neck fullness/pressure, Denies neck lump, Denies nose pain, Denies odynophagia, Denies post-nasal drip, Denies sinus pain, Denies sinus pressure, Denies swelling in mouth, Denies swelling in throat, Denies sore throat, Denies vertigo, Denies voice changes Cardiovascular: Reports as per HPI, Denies chest pain, Denies claudication, Denies decreased exercise tolerance, Denies dyspnea on exertion, Denies edema, Denies high blood pressure, Denies irregular heart beat, Denies leg edema, Denies lightheadedness, Denies orthopnea, Denies palpitations, Denies paroxysmal nocturnal dyspnea, Denies phlebitis, Denies rapid heart beat, Denies shortness of breath, Denies syncope Gastrointestinal: Reports as per HPI, Reports abdominal pain (Left lower quadrant), Reports nausea Genitourinary: Reports as per HPI Menstruation: Reports as per HPI, Reports postmenopausal Musculoskeletal: Reports as per HPI Integumentary: Reports as per HPI Neurological: Reports as per HPI Psychiatric: Reports as per HPI Endocrine: Reports as per HPI Hematologic/Lymphatic: Reports as per HPI Allergic/Immunologic: Reports as per HPI Review Of Systems: Constitutional: No fever, no chills, no night sweats. No weight change. No weakness, fatigue or lethargy. No daytime sleepiness. EENT: No headache. No blurred vision or double vision, no loss of vision. No loss of Hearing, no ringing in the ears, no dizziness. No nasal drainage or congestion. No epistaxis. No sore throat. Lungs: No shortness of breath, cough, no sputum production. No wheezing. Cardiovascular: No chest pain, no lower extremity edema. No palpitations. No paroxysmal nocturnal dyspnea. No orthopnea. No lightheadedness or dizziness. No syncopal episodes. Abdominal: Reports abdominal pain. No nausea, vomiting. No diarrhea. No constipation. No bloody or tarry stools. No loss of appetite. Genitourinary: No dysuria, increased frequency, urgency. No urinary retention. Musculoskeletal: No myalgias. No muscle weakness, no gait dysfunction, no frequent falls. No back pain. No neck pain. Integumentary: No wounds, no lesions. Reports rash or pruritus. No unusual bruising. No change in hair or nails. Neurologic: No aphasia. No facial droop. No change in mentation. No head injury. No headache. No paralysis. No paresthesia. Psychiatric: No depression. No anxiety. No mood swings. Endocrine: No abnormal blood sugars. No weight change. No excessive sweating or thirst. No cold intolerance. - Constitutional General appearance: cooperative, no acute distress, obese - EENT Eyes: anicteric sclerae, EOMI, PERRLA, normal appearance ENT: hearing grossly normal, NA/AT, normal oropharynx - Neck Neck: normal ROM - Respiratory Respiratory: bilateral: CTA, negative: diminished, dullness - Cardiovascular Rhythm: regular Heart sounds: normal: S1, S2 - Gastrointestinal General gastrointestinal: normal bowel sounds, soft, tenderness (Left lower quadrant) - Integumentary Integumentary: decreased turgor, normal Rash to patient's back, chest and abdomen area. No rash noted to perineal area. - Neurologic Neurologic: CNII-XII intact - Musculoskeletal Musculoskeletal: gait normal - Psychiatric Psychiatric: A&O x's 3, appropriate affect, intact judgment & insight - Labs CBC & Chem 7: 10/22/18 09:16 10/22/18 09:16 Assessment and Plan Plan: 1. Acute diverticulitis of the sigmoid and descending colon, without perforation, without abscess. Continue clear liquid diet. Patient is on Levaquin and Flagyl and have multiple ALLERGIES to antibiotics including penicillin and sulfa. Patient also voices concern with Levaquin and Keflex. Consult will be requested with Dr. Mercado. We will plan to advance diet to full liquid today. 2 controlled hypertension we will continue the patient on amlodipine 2.5 mg daily 3. Hypertension, on maintenance Norvasc 2.5 mg daily, 4. Hyperlipidemia. Continue low cholesterol diet follow 5. Obesity with obstructive sleep apnea. Not on CPAP device at home 6. Recurrent urinary tract infection. No UTI this point. 7. Prior history off expiratory lap, secondary to ovarian cyst 8 Family history of colon cancer on the mother, colonoscopy due in December 2018, previous ones were normal, 5 units of all screening, Dr. Romeo Santiago for gastroenterology, patient's contemplating on possibly moving it to our local physicians, 9. Generalized anxiety disorder on when necessary alprazolam prior to admission 10 DVT prophylaxis. Early ambulation. 11. New onset rash possibly related to antibiotics. Kenalog cream added. Discharge plan: Home in the next 24 hours Impression and plan of care have been directed as dictated by the signing physician. Rozina Chamberlain nurse practitioner acting as scribe for signing anna gregory.
[2018-10-22] MEDS: ERTAPENEM 1 GM in SODIUM CHLORIDE 0.9% 50 ML IVPB SCH (19:14)
--- NOTE | 2018-10-22 22:03 | CONS ---
CONSULTATION DATE OF SERVICE: 10/22/2018 REASON FOR CONSULTATION: Acute diverticulitis with multiple antibiotic allergies. HISTORY OF PRESENT ILLNESS: The patient is a 67-year-old female with a past medical history significant for recurrent diverticulitis. Patient usually says that whenever she has an episode of diverticulitis, she stops eating and after a day or two she starts feeling better. Never has been admitted to the hospital or treated with antibiotic therapy. The patient presented to [facility] 2 days ago with a chief complaint of abdominal pain in the left lower quadrant that has been going on for about 5 days before she presented to the hospital. The patient describes the pain to be sharp in quality and has been almost 7 out of 10 with no radiation. Some associated nausea but no vomiting. No diarrhea or constipation. With these symptoms, the patient has been evaluated by the ER physician. On presentation to the hospital, the patient did have a low-grade fever of 99. The patient white count was elevated to 12.5. She did have a CT of the abdomen and pelvis that did show evidence of sigmoid diverticulitis involving the descending colon and the sigmoid colon. The patient has been admitted to the hospital. She was started on Levaquin and Flagyl in this patient who did have MULTIPLE ANTIBIOTIC ALLERGIES INCLUDING PENICILLIN, KEFLEX, AND SULFA. The patient's Levaquin was discontinued as the patient was complaining of excruciating pain associated with the administration of IV Levaquin. Hence, infectious Disease was consulted for further recommendations regarding antibiotic therapy for underlying diverticulitis. REVIEW OF SYSTEMS: CONSTITUTIONAL: Positive for weakness and chills. EYES: No complaint. ENT no complaint. RESPIRATORY: No complaint. CARDIOVASCULAR: No complaint. GENITOURINARY: No complaint. GASTROINTESTINAL: As per HPI. MUSCULOSKELETAL: No complaint. INTEGUMENTARY: No complaint. PSYCHOLOGICAL: No complaint. ENDOCRINE: No complaint. NEUROLOGIC: No complaint. PAST MEDICAL HISTORY: Hypertension, hyperlipidemia, osteoarthritis, sleep apnea, recurrent UTI and diverticulosis. PAST SURGICAL HISTORY: Appendectomy, heart catheterization, tonsillectomy, exploratory laparotomy, tubal ligation. SOCIAL HISTORY: No history of smoking. Occasionally drinks. No drug use. FAMILY HISTORY: Father with history of coronary artery disease . ALLERGIES: TO PENICILLIN, KEFLEX, SULFA WITH A RASH, LEVAQUIN infection as mentioned above. MEDICATION: Currently include the patient is on: 1. Tylenol. 2. Xanax. 3. . 4. Melatonin. 5. Flagyl 500 IV q.8 hours. 6. She is on morphine sulfate. 7. Narcan. 8. Zofran. 9. Kenalog topical. PHYSICAL EXAMINATION: Blood pressure is 158/95 with a pulse of 95, temperature 98.4. She is 100% on room air. General description is an elderly female up in the bed in no distress. No tachypnea or respiration use. HEENT: Shows pallor with no scleral icterus. Oral mucosa membranes are dry. No pharyngeal erythema or thrush. NECK: Trachea central. No thyromegaly. LUNGS: Unlabored breathing. Clear to auscultation anteriorly. No wheeze or crackles. HEART S1, S2. Regular rate and rhythm. ABDOMEN: Soft. Very minimal tenderness. No guarding or rigidity. EXTREMITIES: No edema of the feet. SKIN examination: No rashes or mass palpable. NEUROLOGICAL: Patient is awake, alert, and oriented times three. Mood and affect normal. LABS: CT abdomen and pelvis report as mentioned above. Patient hemoglobin was 12.1, white count 10.5. BUN of 6, creatinine 0.68, UA has been negative. DIAGNOSTIC IMPRESSION AND PLAN: The patient admitted to the hospital with acute sigmoid and descending colon diverticulitis in this patient who currently did have MULTIPLE ANTIBIOTIC ALLERGIES. Unfortunately, not leaving us with any oral option available at this point, hence the patient will likely need to be on IV antibiotics 7-10 days to finish a course of therapy. PLAN: 1. Discontinue the Flagyl. 2. Will add Invanz 1 g daily. 3. The patient already on Invanz, to get a mid line and continue IV Invanz in the outpatient setting for 10 days. 4. We will follow up on the clinical condition to further adjust medication if needed. Thank you for this consultation. We will follow this patient along with you. MMODL / IJN: [id number] /
[2018-10-23] MEDS: SODIUM CHLORIDE 0.9% 1,000 ML IV SCH ×3 (03:58→10:28)
[2018-10-23] MEDS: TRIAMCINOLONE 0.1% CREAM 80 GM TUBE TOPICAL SCH (09:27)
[2018-10-23] MEDS: amLODIPine 2.5 MG TAB PO SCH (09:51)
--- NOTE | 2018-10-23 12:46 | P.DS ---
Providers Date of admission: 10/21/18 01:02 Expected date of discharge: 10/23/18 Attending physician: Magdalena Harrell Consults: 10/22/18 11:42 Consult Physician Routine Consulting Provider: Arash Mercado Consult Reason/Comments: abx, all PCN, cephalo, bactrim. Do you want consulting provider notified?: Yes Primary care physician: [facility] Course: This 67-year-old pleasant lady, follows with Dr. Alva, has underlying history off hypertension, and hypertensive cardiovascular disease, history of sleep apnea not currently on CPAP, and diverticular disease, family history of colon cancer on the mother. Admitted to the emergency room secondary to a 5 day episode of abdominal pain, left lower quadrant area, with colicky features, denies any melena or hematochezia, she has some fever and chills, she was seen in urgent care yesterday, was given Cipro and Flagyl for which patient took a days worth of doses, patient did not respond as quickly as she hadn't the past, now requiring ER evaluation secondary to increasing severity of abdominal pain. Her last colonoscopy was 5 years ago by ash worker Dr. Roblero at [facility] and is due to have one done in December 2018. In the emergency room CAT scan of the abdomen was performed, gallbladder is unremarkable without ductal dilatation, pancreas is normal, spleen and adrenals normal, kidneys ureter are normal, there is abnormal wall thickening and inflammatory changes surrounding diverticula in the distal descending and sigmoid colon compatible with diverticulitis, there is a large duodenal diverti cula no obstruction no perforation no lymphadenopathy 10/22: Patient is complaining of a rash to her back and chest. She states it is mostly itchy but there are some areas that are burning type pain. She also complaining of burning in the labial area. No rash was noted there. Patient states she thinks she may have problems taking Levaquin in the past and had a reaction. She also states that she may have had a reaction the past to Keflex. We will ask Dr. Mercado for antibiotic recommendations. Patient continues to have soreness in the left lower quadrant. She has been afebrile, blood pressure 135/75, heart rate 87, pulse ox 94% on room air. She is currently tolerating clear liquid diet which will be continued for now. Hemoglobin 10.3, white count is 7.5, platelet count 279. Blood sugar 123. Electrolytes within normal limits. 10/23: Patient has been seen by Dr. Mercado and he has changed antibiotics to Invanz with plan for midline and 10 day course of IV antibiotics as an outpati ent. Prescriptions have been provided to case management and midline ordered which has been inserted. Rash is improved. Patient remains afebrile, blood pressure 151/84, pulse ox 96% on room air, heart rate 75. Patient will be discharged home today in stable condition. Discharge diagnoses: 1. Acute diverticulitis of the sigmoid and descending colon, without perforation, without abscess. 2. Hypertension 3. Hyperlipidemia. 4. Obesity with obstructive sleep apnea. Not on CPAP device at home 5. Recurrent urinary tract infection. No UTI this point. 6. Prior history of exploratory lap, secondary to ovarian cyst 7. Family history of colon cancer on the mother, colonoscopy due in December 2018, previous ones were normal. 8. Generalized anxiety disorder 9. New onset rash possibly related to antibiotics. Discharge plan: Home Impression and plan of care have been directed as dictated by the signing physician. Rozina Chamberlain nurse practitioner acting as scribe for signing physician. Patient Condition at Discharge: Good Plan - Discharge Summary Discharge Rx Participant: No New Discharge Prescriptions: New Ertapenem [INVanz] 1 gm IVPB Q24H #10 bag Continue Acetaminophen Tab [Tylenol] 500 mg PO Q6H PRN PRN Reason: Pain Ibuprofen [Motrin] 600 mg PO TID PRN PRN Reason: Pain ALPRAZolam [Xanax] 0.5 - 1 tab PO DAILY PRN PRN Reason: Anxiety amLODIPine BESYLATE [Norvasc] 2.5 mg PO DAILY Discontinued metroNIDAZOLE [Flagyl] 500 mg PO TID Ciprofloxacin HCl [Cipro] 500 mg PO BID Discharge Medication List Acetaminophen Tab [Tylenol] 500 mg PO Q6H PRN 11/16/14 [History] ALPRAZolam [Xanax] 0.5 - 1 tab PO DAILY PRN 10/21/18 [History] Ibuprofen [Motrin] 600 mg PO TID PRN 10/21/18 [History] amLODIPine BESYLATE [Norvasc] 2.5 mg PO DAILY 10/21/18 [History] Ertapenem [INVanz] 1 gm IVPB Q24H #10 bag 10/23/18 [Rx] Follow up Appointment(s)/Referral(s): Russel Alva MD [Primary Care Provider] - 1 Week Arash Mercado MD [STAFF PHYSICIAN] - 2 Weeks Ambulatory/Diagnostic Orders: Basic Metabolic Panel [LAB.AMB] Location: None Selected Complete Blood Count w/diff [LAB.AMB] Location: None Selected Activity/Diet/Wound Care/Special Instructions: fULL LIQUID DIET X3DAYS THEN SOFT. Discharge Disposition: HOME SELF-CARE
[2018-10-23] MEDS ORDERED: amLODIPine 2.5 MG TAB PO STA (12:56)
[2018-10-23 13:31] VITALS: TEMP 97.8
--- NOTE | 2018-10-23 13:49 | PN ---
PROGRESS NOTE DATE OF SERVICE: 10/23/2018 REASON FOR FOLLOWUP: Acute diverticulitis with multiple antibiotic allergies. INTERVAL HISTORY: The patient is currently afebrile. Patient has been breathing comfortably. The patient's abdominal pain has improved. She is tolerating No nausea, no vomiting, no chest pain, shortness of breath or cough. PHYSICAL EXAMINATION: Blood pressure is 150/82 with a pulse of 83, temperature 97.5. She is 96% on room air. General description is an elderly female, up in the room in no distress. RESPIRATORY SYSTEM: Unlabored breathing, clear to auscultation anteriorly. HEART: S1, S2. Regular rate and rhythm. ABDOMEN: Soft, no tenderness. LABS: No new labs have been obtained today. DIAGNOSTIC IMPRESSION AND PLAN: Patient with acute sigmoid diverticulitis with multiple antibiotic allergies. She did well on IV Invanz. She will continue midline today to continue IV Invanz for a total of 10 days with close outpatient followup. MMODL / IJN: [id number] /
[2018-10-23] MEDS: ERTAPENEM 1 GM in SODIUM CHLORIDE 0.9% 50 ML IVPB SCH (14:59)
[2018-10-23 15:49] VITALS: BP 148/96; PULSE 87; RESP 18
== END 2018-10-23 16:49 | disposition home or self-care (01) ==
LOC: EC 19:46 → 4SSUR 10-21 01:02 → 6PED 10-23 06:20
PROVIDERS: ADMIT Family Medicine; ATTEND Family Medicine
DX: K57.32 Diverticulitis of large intestine without perforation or abscess without bleeding (principal); E66.9 Obesity, unspecified; Z68.32 Body mass index [BMI] 32.0-32.9, adult; E78.5 Hyperlipidemia, unspecified; R21 Rash and other nonspecific skin eruption; F41.1 Generalized anxiety disorder; M19.90 Unspecified osteoarthritis, unspecified site; G47.33 Obstructive sleep apnea (adult) (pediatric); I11.9 Hypertensive heart disease without heart failure; Z87.440 Personal history of urinary (tract) infections; Z88.2 Allergy status to sulfonamides; Z79.899 Other long term (current) drug therapy; Z88.1 Allergy status to other antibiotic agents; Z88.0 Allergy status to penicillin; Z82.49 Family history of ischemic heart disease and other diseases of the circulatory system; Z80.0 Family history of malignant neoplasm of digestive organs
CPT/HCPCS: 96361 ×3; 96366 ×3; 96367 ×2; 96375 ×2; 96376; 96365; 99285; 36415; 36410; 76937; 80053 ×3; 83605; 83690; 85025 ×3; 81003; 74177; G0378 ×4; C1751; J2270 ×2; J2405; J1335 ×2; J1956 ×2; Q9967

== ENCOUNTER → 2018-12-24 | Outpatient (CLI) | payer MEDICARE, OTHER ==
[2018-12-24 16:57] LABS: Basophils % (A) 0 %; Eosinophils # (A) 0.1 k/uL (0-0.7); Eosinophils % (A) 1 %; HCT 37.3 % (34.0-46.0); HGB 12.6 gm/dL (11.4-16.0); Lymphocytes % (A) 35 %; MCH 28.2 pg (25.0-35.0); MCHC 33.7 g/dL (31.0-37.0); MCV 83.5 fL (80.0-100.0); Mean Platelet Volume 6.5; Monocytes # (A) 0.3 k/uL (0-1.0); Monocytes % (A) 6 %; Neutrophils # (A) 3.3 k/uL (1.3-7.7); Neutrophils % (A) 57 %; Platelet Count 278 k/uL (150-450); RBC 4.47 m/uL (3.80-5.40); RDW 13.2 % (11.5-15.5); WBC 5.8 k/uL (3.8-10.6)
[2018-12-24 17:03] LABS: African American GFR (CKD) >90 (>60 ml/min/1.73 sqM); Blood Urea Nitrogen 12 mg/dL (7-17); C Reactive Protein 14.7 mg/L (<10.0)
--- NOTE | 2018-12-25 08:22 | CT ---
EXAMINATION TYPE: CT abdomen pelvis wo/w con DATE OF EXAM: 12/24/2018 COMPARISON: 10/20/2018 INDICATION: Follow up from 10-20-18 CT. Left lower quadrant pain and diverticulitis. DLP: 1671.2 mGycm, Automated exposure control for dose reduction was used. CONTRAST: 100 mL of Isovue M300. Study performed with Oral Contrast TECHNIQUE: Axial images were obtained from above the diaphragm to the pubic rami in the axial plane a t 5 mm thick sections. Reconstructed images are reviewed on the computer in the coronal plane. FINDINGS: Limited CT sections are obtained the lung bases. The lung bases are clear. CT ABDOMEN: Liver: Normal Spleen: Normal Pancreas: Normal Adrenal glands: The adrenal glands are normal. Gallbladder: Normal Kidneys: No masses are evident. No hydronephrosis is present. No cysts are present. Delayed images were obtained through the kidneys, which remain unremarkable. Aorta: Mild Vascular calcification is within the aorta. Inferior vena cava: Normal. CT PELVIS: Loops of bowel within the abdomen and pelvis are normal. There are loops of bowel which are incom pletely distended or lack oral contrast limiting their evaluation. Scattered diverticular changes are within the descending colon and sigmoid colon. Appendix: Not well visualized. No suspicious inflammatory changes or dilated tubular structures are e vident. Urinary bladder: Normal. Genitourinary structures: Uterus and ovaries appear unremarkable. Osseous structures: No suspicious lytic or sclerotic lesions. IMPRESSIONS: 1. Diverticulosis without acute diverticulitis.
== END | disposition home or self-care (01) ==
LOC: RADCTMAIN 16:17
PROVIDERS: ATTEND Internal Medicine Gastroenterology
DX: K57.90 Diverticulosis of intestine, part unspecified, without perforation or abscess without bleeding (principal); K57.32 Diverticulitis of large intestine without perforation or abscess without bleeding; R10.32 Left lower quadrant pain; R14.0 Abdominal distension (gaseous); R10.12 Left upper quadrant pain
CPT/HCPCS: 82565; 84520; 85025; 86140; 74178; 36415; Q9967 ×2

== ENCOUNTER 2021-03-29 21:18 | Inpatient (IN) | payer MEDICARE, OTHER ==
[2021-03-29] MEDS ORDERED: ONDANSETRON 4 MG/2 ML VIAL IVP STA (23:24)
[2021-03-29] MEDS ORDERED: MORPHINE SULFATE 4 MG/ML SYRINGE IV STA (23:24)
[2021-03-29] MEDS ORDERED: SODIUM CHLORIDE 0.9% 500 ML 500 ML IV STA (23:24)
[2021-03-30 00:36] LABS: Appearance,Urine Cloudy (Clear); Bacteria,Urine Occasional /hpf; Basophils % (A) 0 %; Bilirubin,Urine Negative (Negative); Blood,Urine Negative (Negative); Color,Urine Yellow; Eosinophils # (A) 0.1 k/uL (0-0.7); Eosinophils % (A) 1 %; Glucose,Urine (UA) Negative (Negative); HCT 40.4 % (34.0-46.0); HGB 13.4 gm/dL (11.4-16.0); Ketones,Urine 4+ (Negative); Leukocyte Esterase,Urine Moderate (Negative); Lymphocytes # (A) 1.4 k/uL (1.0-4.8); Lymphocytes % (A) 15 %; MCH 29.7 pg (25.0-35.0); MCHC 33.2 g/dL (31.0-37.0); MCV 89.4 fL (80.0-100.0); Monocytes # (A) 0.7 k/uL (0-1.0); Monocytes % (A) 7 %; Mucus,Urine Rare /hpf; Neutrophils # (A) 7.1 k/uL (1.3-7.7); Neutrophils % (A) 75 %; Nitrite,Urine Negative (Negative); PH, Urine 5.5 (5.0-8.0); Platelet Count 281 k/uL (150-450); Protein,Urine Trace (Negative); RBC 4.52 m/uL (3.80-5.40); RBC,Urine 2 /hpf (0-5); RDW 12.8 % (11.5-15.5); Squamous Epithelial Cell,Urine 13 /hpf (0-4); WBC 9.4 k/uL (3.8-10.6); WBC,Urine 10 /hpf (0-5)
[2021-03-30 00:37] LABS: Albumin 4.2 g/dL (3.5-5.0); Calcium 9.7 mg/dL (8.4-10.2); Potassium 4.4 mmol/L (3.5-5.1); Total Bilirubin 0.9 mg/dL (0.2-1.3); Total Protein 7.2 g/dL (6.3-8.2)
--- NOTE | 2021-03-30 01:14 | CT ---
EXAMINATION TYPE: CT abdomen pelvis w con DATE OF EXAM: 03/30/2021 COMPARISON: 12/24/2018 HISTORY: LLQ abdominal pain. prior on PACS CT DLP: 1269.9 mGycm Automated exposure control for dose reduction was used. CONTRAST: Performed with IV Contrast, patient injected with 100 ml mL of Isovue 300. There is mild subsegmental atelectasis at the lung bases. Heart size is normal. There is no pericardi al effusion. Liver spleen and stomach pancreas and gallbladder appear intact. Flexor not dilated. There is no adrenal mass. Kidneys show satisfactory contrast opacification. There is no hydronephrosi s. Ureters are not dilated. There is no retroperitoneal adenopathy. Bladder distends smoothly. There is no inguinal hernia. There are numerous sigmoid diverticula. There is fat stranding and minimal fluid around the proximal sigmoid colon and the lower descending colon. There is also focal inflammatory changes around the mid descending colon. The lumbar vertebrae have normal alignment. There is no compression fracture. Bony pelvis is intact. The hip joints are intact. Uterus is anteverted. There is no evidence of a pelvic mass. IMPRESSION: There is sigmoid diverticulitis. No drainable fluid collection. Inflammatory changes increased compar ed to old exams. There is also focal mild diverticulitis of the mid descending colon.
[2021-03-30] MEDS ORDERED: ERTAPENEM 1 GM in SODIUM CHLORIDE 0.9% 50 ML IVPB ONE (02:00)
--- NOTE | 2021-03-30 02:04 | ED ---
Abdominal Pain HPI - General Chief Complaint: Abdominal Pain Stated Complaint: abdominal pain Time Seen by Provider: 03/29/21 23:07 Source: patient Mode of arrival: ambulatory Limitations: no limitations - History of Present Illness Initial Comments: 70-year-old female patient presents to the emergency department today for evaluation of left lower quadrant abdominal pain that started 2 days ago. The patient does have history of diverticulitis and states her symptoms are similar. She reports diarrhea after taking magnesium citrate. Denies any nausea or vomiting. States she has been chilled but denies any fevers. She denies any hematuria, dysuria, urinary frequency, urinary urgency. Denies any history of abdominal surgery other than tubal ligation. Denies taking any medication for pain. Patient does admit to multiple antibiotic ALLERGIES and states she is only been able to receive Invanz in the past for her diverticulitis. - Related Data Home Medications Medication Instructions Recorded Confirmed Acetaminophen Tab [Tylenol] 500 mg PO Q6H PRN 11/16/14 10/21/18 ALPRAZolam [Xanax] 0.5 - 1 tab PO DAILY PRN 10/21/18 10/21/18 Ibuprofen [Motrin] 600 mg PO TID PRN 10/21/18 10/21/18 amLODIPine BESYLATE [Norvasc] 2.5 mg PO DAILY 10/21/18 10/21/18 Previous Rx's Medication Instructions Recorded Ertapenem [INVanz] 1 gm IVPB Q24H #10 bag 10/23/18 Allergies Allergy/AdvReac Type Severity Reaction Status Date / Time codeine Allergy Itching Verified 10/21/18 08:46 levofloxacin [From Levaquin] Allergy Rash/Hives Verified 10/22/18 18:56 losartan Allergy Swelling Verified 03/29/21 23:06 metronidazole [From Flagyl] Allergy Unknown Verified 03/30/21 02:00 Penicillins Allergy Rash/Hives Verified 10/21/18 08:46 Sulfa (Sulfonamide Allergy Unknown Verified 10/21/18 08:46 Antibiotics) benazepril [From Lotensin] AdvReac Cough Verified 03/29/21 23:06 Review of Systems ROS Statement: Those systems with pertinent positive or pertinent negative responses have been documented in the HPI. ROS Other: All systems not noted in ROS Statement are negative. Past Medical History Past Medical History: Chest Pain / Angina, Hyperlipidemia, Hypertension, Osteoarthritis (OA), Sleep Apnea/CPAP/BIPAP Additional Past Medical History / Comment(s): Recurrent urinary tract infections.diverticulosis History of Any Multi-Drug Resistant Organisms: None Reported Past Surgical History: Appendectomy, Heart Catheterization, Tonsillectomy Additional Past Surgical History / Comment(s): exploratory lap, tubal ligation. Past Anesthesia/Blood Transfusion Reactions: Previous Problems w/ Anesthesia Additional Past Anesthesia/Blood Transfusion Reaction / Comment(s): STATES HARD TO WAKE UP AFTER COLONOSCOPY Past Psychological History: No Psychological Hx Reported Smoking Status: Never smoker Past Alcohol Use History: Occasional Past Drug Use History: None Reported - Past Family History Mother Family Medical History: Cancer (: Cancer of colon), Coronary Artery Disease (CAD), Myocardial Infarction ([place]) Additional Family Medical History / Comment(s): ANGIOPLASTY Father Family Medical History: Coronary Artery Disease (CAD), Myocardial Infarction ([place]) Additional Family Medical History / Comment(s): ANGIOPLASTY Sister(s) Family Medical History: No Reported History Brother(s) Family Medical History: Coronary Artery Disease (CAD) Son(s) Family Medical History: No Reported History General Exam Limitations: no limitations General appearance: alert, in no apparent distress, other (This is a well- developed, well-nourished adult female patient in mild distress related to pain.) ENT exam: Present: normal exam, normal oropharynx, mucous membranes moist Respiratory exam: Present: normal lung sounds bilaterally. Absent: respiratory distress, wheezes, rales, rhonchi, stridor Cardiovascular Exam: Present: regular rate, normal rhythm, normal heart sounds. Absent: systolic murmur, diastolic murmur, rubs, gallop, clicks GI/Abdominal exam: Present: soft, tenderness (Left lower quadrant), normal bowel sounds. Absent: distended, guarding, rebound, rigid Neurological exam: Present: alert, oriented X3, CN II-XII intact Psychiatric exam: Present: normal affect, normal mood Skin exam: Present: warm, dry, intact, normal color. Absent: rash Course Vital Signs 03/29/21 03/30/21 23:02 02:00 Temperature 98.8 F 97.5 F L Pulse Rate 108 H 85 Respiratory 18 18 Rate Blood Pressure 172/87 161/74 O2 Sat by Pulse 96 94 L Oximetry Medical Decision Making - Medical Decision Making 70-year-old female patient presents for evaluation of left lower quadrant abdominal pain. Physical examination did reveal left lower quadrant tenderness. Vital signs are unremarkable. Absent revealed normal white blood cell count. CT abdomen and pelvis was obtained and did show evidence for diverticulitis in the sigmoid colon and in the descending colon. She is given IV pain medication. Upon reevaluation she is resting comfortably. Due to multiple antibiotic ALLERGIES we will admit to the hospital and start Invanz. She previously had to be set up for outpatient infusions with this. She is agreeable to admission. Case is discussed in my attending Dr. Jones. - Lab Data Result diagrams: 03/29/21 23:45 03/29/21 23:45 Lab Results 03/29/21 03/29/21 03/29/21 Range/Units 23:45 23:45 23:45 WBC 9.4 (3.8-10.6) k/uL RBC 4.52 (3.80-5.40) m/uL Hgb 13.4 (11.4-16.0) gm/dL Hct 40.4 (34.0-46.0) % MCV 89.4 (80.0-100.0) fL MCH 29.7 (25.0-35.0) pg MCHC 33.2 (31.0-37.0) g/dL RDW 12.8 (11.5-15.5) % Plt Count 281 (150-450) k/uL MPV 8.0 Neutrophils % 75 % Lymphocytes % 15 % Monocytes % 7 % Eosinophils % 1 % Basophils % 0 % Neutrophils # 7.1 (1.3-7.7) k/uL Lymphocytes # 1.4 (1.0-4.8) k/uL Monocytes # 0.7 (0-1.0) k/uL Eosinophils # 0.1 (0-0.7) k/uL Basophils # 0.0 (0-0.2) k/uL Sodium 133 L (137-145) mmol/L Potassium 4.4 (3.5-5.1) mmol/L Chloride 97 L (98-107) mmol/L Carbon Dioxide 25 (22-30) mmol/L Anion Gap 11 mmol/L BUN 12 (7-17) mg/dL Creatinine 0.79 (0.52-1.04) mg/dL Est GFR (CKD-EPI)AfAm 90 (>60 ml/min/1.73 sqM) Est GFR (CKD-EPI)NonAf 78 (>60 ml/min/1.73 sqM) Glucose 101 H (74-99) mg/dL Plasma Lactic Acid Lester (0.7-2.0) mmol/L Calcium 9.7 (8.4-10.2) mg/dL Total Bilirubin 0.9 (0.2-1.3) mg/dL AST 20 (14-36) U/L ALT 23 (4-34) U/L Alkaline Phosphatase 138 H (38-126) U/L Total Protein 7.2 (6.3-8.2) g/dL Albumin 4.2 (3.5-5.0) g/dL Lipase 40 (23-300) U/L Urine Color Yellow Urine Appearance Cloudy H (Clear) Urine pH 5.5 (5.0-8.0) Ur Specific Roland 1.020 (1.001-1.035) Urine Protein Trace H (Negative) Urine Glucose (UA) Negative (Negative) Urine Ketones 4+ H (Negative) Urine Blood Negative (Negative) Urine Nitrite Negative (Negative) Urine Bilirubin Negative (Negative) Urine Urobilinogen 2.0 (<2.0) mg/dL Ur Leukocyte Esterase Moderate H (Negative) Urine RBC 2 (0-5) /hpf Urine WBC 10 H (0-5) /hpf Ur Squamous Epith Cells 13 H (0-4) /hpf Urine Bacteria Occasional H (None) /hpf Urine Mucus Rare H (None) /hpf 03/29/21 Range/Units 23:45 WBC (3.8-10.6) k/uL RBC (3.80-5.40) m/uL Hgb (11.4-16.0) gm/dL Hct (34.0-46.0) % MCV (80.0-100.0) fL MCH (25.0-35.0) pg MCHC (31.0-37.0) g/dL RDW (11.5-15.5) % Plt Count (150-450) k/uL MPV Neutrophils % % Lymphocytes % % Monocytes % % Eosinophils % % Basophils % % Neutrophils # (1.3-7.7) k/uL Lymphocytes # (1.0-4.8) k/uL Monocytes # (0-1.0) k/uL Eosinophils # (0-0.7) k/uL Basophils # (0-0.2) k/uL Sodium (137-145) mmol/L Potassium (3.5-5.1) mmol/L Chloride (98-107) mmol/L Carbon Dioxide (22-30) mmol/L Anion Gap mmol/L BUN (7-17) mg/dL Creatinine (0.52-1.04) mg/dL Est GFR (CKD-EPI)AfAm (>60 ml/min/1.73 sqM) Est GFR (CKD-EPI)NonAf (>60 ml/min/1.73 sqM) Glucose (74-99) mg/dL Plasma Lactic Acid Lester 1.1 (0.7-2.0) mmol/L Calcium (8.4-10.2) mg/dL Total Bilirubin (0.2-1.3) mg/dL AST (14-36) U/L ALT (4-34) U/L Alkaline Phosphatase (38-126) U/L Total Protein (6.3-8.2) g/dL Albumin (3.5-5.0) g/dL Lipase (23-300) U/L Urine Color Urine Appearance (Clear) Urine pH (5.0-8.0) Ur Specific Roland (1.001-1.035) Urine Protein (Negative) Urine Glucose (UA) (Negative) Urine Ketones (Negative) Urine Blood (Negative) Urine Nitrite (Negative) Urine Bilirubin (Negative) Urine Urobilinogen (<2.0) mg/dL Ur Leukocyte Esterase (Negative) Urine RBC (0-5) /hpf Urine WBC (0-5) /hpf Ur Squamous Epith Cells (0-4) /hpf Urine Bacteria (None) /hpf Urine Mucus (None) /hpf - Radiology Data Radiology results: report reviewed, image reviewed CT abdomen and pelvis was obtained. Report is reviewed in its entirety. Impression by Dr. Mcintyre shows sigmoid diverticulitis. No drainable fluid collection. Inflammatory changes increased compared to old exams. There is also focal mild diverticulitis of the mid descending colon. Disposition Clinical Impression: Diverticulitis Disposition: ADMITTED IP TO THIS [facility] Condition: Serious Referrals: Russel Alva MD [Primary Care Provider] - 1-2 days Decision to Admit Reason: Admit from EC Decision Date: 03/30/21 Decision Time: 02:04
[2021-03-30] MEDS ORDERED: MORPHINE SULFATE 4 MG/ML SYRINGE IVP STA (02:11)
[2021-03-30] MEDS ORDERED: NALOXONE 0.4 MG/ML 1 ML VIAL IV PRN (02:33)
[2021-03-30] MEDS ORDERED: MORPHINE SULFATE 4 MG/ML SYRINGE IV PRN (02:33)
[2021-03-30] MEDS: SODIUM CHLORIDE 0.9% 1,000 ML IV SCH ×2 (03:59→17:23)
--- NOTE | 2021-03-30 13:11 | P.HPIM ---
History of Present Illness H&P Date: 03/30/21 HISTORY OF PRESENT ILLNESS This is a 70-year-old female patient of Dr. Alva's medical history of hypertension and hypertensive cardiovascular disease, obstructive sleep apnea, generalized anxiety disorder. Patient presented to the hospital with complaints of left lower quadrant abdominal pain and she states this has been going on for 4 days. She has had nausea without vomiting without diarrhea. She is constipated she did take magnesium citrate on Monday. Pain is under control as long as she does not move. Patient's last colonscopy at [facility] finding diverticulitis. She has had a previous bouts of diverticulitis without perforation without abscess in 2019 treated with IV antibiotics with Invanz. Patient had ALLERGIC reaction to Flagyl and ciprofloxacin. Patient was found to be afebrile, heart rate 108, blood pressure 172/87, pulse ox 96% on room air. CBC was unremarkable. Sodium 133, potassium 4.4, chloride 97, otherwise electrolytes and renal function normal. Blood sugar 101. Total bilirubin 0.9, AST 20, ALT 23, alkaline phosphatase 138. Lactic acid 1.1. Urinalysis cloudy, ketones 4+, leukoesterase moderate, wbc's 10 squamous cells 13. Chronic virus PCR not detected. CAT scan of the abdomen and pelvis with contrast revealed sigmoid diverticulitis. No drainable fluid collection. Inflammatory changes increase compared to old exams. There is also focal mild diverticulitis of the mid descending colon. Patient seen today in the ER [facility]. REVIEW OF SYSTEMS Constitutional: No fever, no chills, no night sweats. No weight change. No weakness, fatigue or lethargy. No daytime sleepiness. EENT: No headache. No blurred vision or double vision, no loss of vision. No loss of Hearing, no ringing in the ears, no dizziness. No nasal drainage or congestion. No epistaxis. No sore throat. Lungs: No shortness of breath, cough, no sputum production. No wheezing. Cardiovascular: No chest pain, no lower extremity edema. No palpitations. No paroxysmal nocturnal dyspnea. No orthopnea. No lightheadedness or dizziness. No syncopal episodes. Abdominal: Reports abdominal pain. Reports nausea, no vomiting. No diarrhea. Reports constipation. No bloody or tarry stools. Reports loss of appetite. Genitourinary: No dysuria, increased frequency, urgency. No urinary retention. Musculoskeletal: No myalgias. No muscle weakness, no gait dysfunction, no frequent falls. No back pain. No neck pain. Integumentary: No wounds, no lesions. No rash or pruritus. No unusual bruising. No change in hair or nails. Neurologic: No aphasia. No facial droop. No change in mentation. No head injury. No headache. No paralysis. No paresthesia. Psychiatric: No depression. No anxiety. No mood swings. Endocrine: No abnormal blood sugars. No weight change. No excessive sweating or thirst. No cold intolerance. SOCIAL HISTORY Patient is a lifelong nonsmoker, occasional alcohol use. She lives with her . FAMILY HISTORY Mother dies at age 75 from colon cancer. Father at age 88 from kidney failure. Patient has 2 sisters and one has diverticulitis and wonders coronary artery disease status post stent. Patient has 2 brothers one has diverticulitis and coronary artery disease status post CABG. Patient has 2 sons. One has past of unknown cause and one son is alive with no major medical problems. PHYSICAL EXAMINATION Gen: This is a 70-year-old female resting in bed and appers to be in any acute distress. HEENT: Head is atraumatic, normocephalic. Pupils equal, round. Sclerae is anicteric. NECK: Supple. No JVD. No lymphadenopathy. No thyromegaly. LUNGS: Clear to auscultation. No wheezes or rhonchi. No intercostal retractions. HEART: Regular rate and rhythm. No murmur. ABDOMEN: Soft. Bowel sounds are present. No masses. Right-sided and left lower quadrant tenderness. EXTREMITIES: No pedal edema. No calf tenderness. Dorsalis pedis +2 bilaterally. NEUROLOGICAL: Patient is awake, alert and oriented x3. Cranial nerves 2 through 12 are grossly intact. ASSESSMENT AND PLAN 1. Acute diverticulitis. Consult added for Dr. Mata. Continue IV fluids, morphine as needed for pain, Zofran as needed for nausea, Invanz 1 g IV piggyback daily. Patient is currently on a clear liquid diet. 2. Hypertension, hypertensive cardiovascular disease. Continue amlodipine 2.5 mg twice daily. 3. Hyperlipidemia. Continue low cholesterol diet follow. 4. Obesity with obstructive sleep apnea. Discussed with the patient the importance of using the CPAP, as this may be the single most appropriate for her and controlled hypertension. 5. Recurrent urinary tract infection. No UTI this point. 6. DVT prophylaxis. Early ambulation, SCDs and FRANCIA hose. 8. GI prophylaxis. Protonix. 9. COVID-19 testing negative. Patient has been hospitalized during a pandemic. Patient will be admitted to the hospital for a minimum of 2 night stay. DISCHARGE PLAN Home Impression and plan of care have been directed as dictated by the signing physician. Rozina Chamberlain nurse practitioner acting as scribe for signing physician. Past Medical History Past Medical History: Chest Pain / Angina, Hyperlipidemia, Hypertension, Sleep Apnea/CPAP/BIPAP Additional Past Medical History / Comment(s): Diverticulitis, KARSTEN but has not used Cpap for 1 year, recurrent UTIs, L carpal tunnel syndrome, anemia as an . History of Any Multi-Drug Resistant Organisms: None Reported Past Surgical History: Appendectomy, Heart Catheterization, Tonsillectomy, Tubal Ligation Additional Past Surgical History / Comment(s): exploratory lap for ovarian cyst, colonoscopies. Past Anesthesia/Blood Transfusion Reactions: Previous Problems w/ Anesthesia Additional Past Anesthesia/Blood Transfusion Reaction / Comment(s): STATES HARD TO WAKE UP AFTER 1 ST COLONOSCOPY Smoking Status: Current some day smoker, Light tobacco smoker - Past Family History Mother Family Medical History: Cancer, Coronary Artery Disease (CAD), Myocardial Infarction ([place]) Additional Family Medical History / Comment(s): Mother is from colon cancer. She had PTCA. Father Family Medical History: Coronary Artery Disease (CAD), Myocardial Infarction ([place]), Renal Disease Additional Family Medical History / Comment(s): Father is from renal failure. He had PTCA Sister(s) Family Medical History: No Reported History Brother(s) Family Medical History: Coronary Artery Disease (CAD) Son(s) Family Medical History: No Reported History Medications and Allergies Home Medications Medication Instructions Recorded Confirmed Type ALPRAZolam [Xanax] 0.25 tab PO BID PRN 10/21/18 03/30/21 History amLODIPine BESYLATE [Norvasc] 2.5 mg PO BID 10/21/18 03/30/21 History Allergies Allergy/AdvReac Type Severity Reaction Status Date / Time codeine Allergy Itching Verified 03/30/21 07:03 levofloxacin [From Levaquin] Allergy Rash/Hives Verified 03/30/21 07:03 losartan Allergy Swelling Verified 03/30/21 07:03 metronidazole [From Flagyl] Allergy Unknown Verified 03/30/21 07:03 Penicillins Allergy Rash/Hives Verified 03/30/21 07:03 Sulfa (Sulfonamide Allergy Unknown Verified 03/30/21 07:03 Antibiotics) benazepril [From Lotensin] AdvReac Cough Verified 03/30/21 07:03 Physical Exam Vitals: Vital Signs Temp Pulse Resp BP Pulse Ox 03/30/21 08:31 86 18 145/76 93 L 03/30/21 05:00 97.2 F L 89 18 182/85 95 03/30/21 02:00 97.5 F L 85 18 161/74 94 L 03/29/21 23:02 98.8 F 108 H 18 172/87 96 Intake and Output 03/29/21 03/30/21 03/30/21 22:59 06:59 14:59 Other: Weight 83.915 kg 83.915 kg Results CBC & Chem 7: 03/29/21 23:45 03/29/21 23:45 Labs: Abnormal Lab Results - Last 24 Hours (Table) 03/29/21 03/29/21 Range/Units 23:45 23:45 Sodium 133 L (137-145) mmol/L Chloride 97 L (98-107) mmol/L Glucose 101 H (74-99) mg/dL Alkaline Phosphatase 138 H (38-126) U/L Urine Appearance Cloudy H (Clear) Urine Protein Trace H (Negative) Urine Ketones 4+ H (Negative) Ur Leukocyte Esterase Moderate H (Negative) Urine WBC 10 H (0-5) /hpf Ur Squamous Epith Cells 13 H (0-4) /hpf Urine Bacteria Occasional H (None) /hpf Urine Mucus Rare H (None) /hpf Thrombosis Risk Factor Assmnt - Choose All That Apply Any of the Below Risk Factors Present?: Yes Each Factor Represents 1 point: Obesity (BMI >25) Other Risk Factors: Yes Each Risk Factor Represents 2 Points: Age 61-74 years Other congenital or acquired thrombophilia - If yes, enter type in comment: No Thrombosis Risk Factor Assessment Total Risk Factor Score: 3 Thrombosis Risk Factor Assessment Level: Moderate Risk
[2021-03-30] MEDS ORDERED: ACETAMINOPHEN TAB 325 MG TAB PO PRN (15:15)
--- NOTE | 2021-03-30 15:18 | P.GSCN ---
History of Present Illness Consult date: 03/30/21 Reason for Consult: Diverticulitis History of present illness: 70-year-old female presents to the ER yesterday with complaints of left lower qu adrant abdominal pain. Patient says her symptoms started last . Has had nausea but no vomiting. He felt constipated. Took a bottle of magnesium citrate on Monday and had multiple loose stools. Pain persisted through the weekend and was getting worse in severity. For that reason she came to the hospital. Denies fevers. History of approximately 3 prior episodes of diverticulitis requiring antibiotics or medical evaluation. Says she thinks she has had minor episodes as well. Last episode was 2 years ago. Had a colonoscopy by a assembly mechanic in [place] following that. CAT scan performed yesterday after she came in and showed acute sigmoid diverticulitis without abscess. White blood cell count normal. Mild tachycardia. No fevers. Denies rectal bleeding or melena. Patient with numerous ALLERGIES. Currently on Invanz. Review of Systems The patient denies any acute changes in vision or hearing, no dysphagia or odynophagia, no chest pain or shortness of breath, no dysuria or hematuria, no headache, no runny nose, no rectal bleeding or melena, no unexplained weight loss Past Medical History Past Medical History: Chest Pain / Angina, Hyperlipidemia, Hypertension, Sleep Apnea/CPAP/BIPAP Additional Past Medical History / Comment(s): Diverticulitis, KARSTEN but has not used Cpap for 1 year, recurrent UTIs, L carpal tunnel syndrome, anemia as an . History of Any Multi-Drug Resistant Organisms: None Reported Past Surgical History: Appendectomy, Heart Catheterization, Tonsillectomy, Tubal Ligation Additional Past Surgical History / Comment(s): exploratory lap for ovarian cyst, colonoscopies. Past Anesthesia/Blood Transfusion Reactions: Previous Problems w/ Anesthesia Additional Past Anesthesia/Blood Transfusion Reaction / Comm: STATES HARD TO WAKE UP AFTER 1 ST COLONOSCOPY Smoking Status: Current some day smoker, Light tobacco smoker - Past Family History Mother Family Medical History: Cancer, Coronary Artery Disease (CAD), Myocardial Infarction ([place]) Additional Family Medical History / Comment(s): Mother is from colon cancer. She had PTCA. Father Family Medical History: Coronary Artery Disease (CAD), Myocardial Infarction ([place]), Renal Disease Additional Family Medical History / Comment(s): Father is from renal failure. He had PTCA Sister(s) Family Medical History: No Reported History Brother(s) Family Medical History: Coronary Artery Disease (CAD) Son(s) Family Medical History: No Reported History Medications and Allergies Home Medications Medication Instructions Recorded Confirmed Type ALPRAZolam [Xanax] 0.25 tab PO BID PRN 10/21/18 03/30/21 History amLODIPine BESYLATE [Norvasc] 2.5 mg PO BID 10/21/18 03/30/21 History Allergies Allergy/AdvReac Type Severity Reaction Status Date / Time codeine Allergy Itching Verified 03/30/21 07:03 levofloxacin [From Levaquin] Allergy Rash/Hives Verified 03/30/21 07:03 losartan Allergy Swelling Verified 03/30/21 07:03 metronidazole [From Flagyl] Allergy Unknown Verified 03/30/21 07:03 Penicillins Allergy Rash/Hives Verified 03/30/21 07:03 Sulfa (Sulfonamide Allergy Unknown Verified 03/30/21 07:03 Antibiotics) benazepril [From Lotensin] AdvReac Cough Verified 03/30/21 07:03 Surgical - Exam Vital Signs Temp Pulse Resp BP Pulse Ox 98.8 F 108 H 18 172/87 96 03/29/21 23:02 03/29/21 23:02 03/29/21 23:02 03/29/21 23:02 03/29/21 23:02 Physical exam: General: Well-developed, well-nourished HEENT: Normocephalic, sclerae nonicteric Abdomen: Left lower quadrant tenderness, nondistended Extremities: No edema Neuro: Alert and oriented Results - Labs 03/29/21 23:45 03/29/21 23:45 Abnormal Lab Results - Last 24 Hours (Table) 03/29/21 03/29/21 Range/Units 23:45 23:45 Sodium 133 L (137-145) mmol/L Chloride 97 L (98-107) mmol/L Glucose 101 H (74-99) mg/dL Alkaline Phosphatase 138 H (38-126) U/L Urine Appearance Cloudy H (Clear) Urine Protein Trace H (Negative) Urine Ketones 4+ H (Negative) Ur Leukocyte Esterase Moderate H (Negative) Urine WBC 10 H (0-5) /hpf Ur Squamous Epith Cells 13 H (0-4) /hpf Urine Bacteria Occasional H (None) /hpf Urine Mucus Rare H (None) /hpf Diabetes panel 03/29/21 Range/Units 23:45 Sodium 133 L (137-145) mmol/L Potassium 4.4 (3.5-5.1) mmol/L Chloride 97 L (98-107) mmol/L Carbon Dioxide 25 (22-30) mmol/L BUN 12 (7-17) mg/dL Creatinine 0.79 (0.52-1.04) mg/dL Glucose 101 H (74-99) mg/dL Calcium 9.7 (8.4-10.2) mg/dL AST 20 (14-36) U/L ALT 23 (4-34) U/L Alkaline Phosphatase 138 H (38-126) U/L Total Protein 7.2 (6.3-8.2) g/dL Albumin 4.2 (3.5-5.0) g/dL Calcium panel 03/29/21 Range/Units 23:45 Calcium 9.7 (8.4-10.2) mg/dL Albumin 4.2 (3.5-5.0) g/dL Pituitary panel 03/29/21 Range/Units 23:45 Sodium 133 L (137-145) mmol/L Potassium 4.4 (3.5-5.1) mmol/L Chloride 97 L (98-107) mmol/L Carbon Dioxide 25 (22-30) mmol/L BUN 12 (7-17) mg/dL Creatinine 0.79 (0.52-1.04) mg/dL Glucose 101 H (74-99) mg/dL Calcium 9.7 (8.4-10.2) mg/dL Adrenal panel 03/29/21 Range/Units 23:45 Sodium 133 L (137-145) mmol/L Potassium 4.4 (3.5-5.1) mmol/L Chloride 97 L (98-107) mmol/L Carbon Dioxide 25 (22-30) mmol/L BUN 12 (7-17) mg/dL Creatinine 0.79 (0.52-1.04) mg/dL Glucose 101 H (74-99) mg/dL Calcium 9.7 (8.4-10.2) mg/dL Total Bilirubin 0.9 (0.2-1.3) mg/dL AST 20 (14-36) U/L ALT 23 (4-34) U/L Alkaline Phosphatase 138 H (38-126) U/L Total Protein 7.2 (6.3-8.2) g/dL Albumin 4.2 (3.5-5.0) g/dL Assessment and Plan (1) Acute diverticulitis Narrative/Plan: 70-year-old female with acute sigmoid diverticulitis. Continue Invanz or antibiotics. Consider infectious disease consultation for recommendations regarding home antibiotics. Continue clear liquid diet. Add Toradol and Tylenol for pain control. We'll follow with you. Current Visit: No Status: Acute Code(s): K57.92 - DVTRCLI OF INTEST, PART UNSP, W/O PERF OR ABSCESS W/O BLEED SNOMED Code(s): 970253198
[2021-03-30] MEDS: amLODIPine 2.5 MG TAB PO SCH ×2 (15:25→22:40)
[2021-03-30] MEDS: ALPRAZolam 0.25 MG TAB PO PRN (17:24)
[2021-03-30] MEDS: KETOROLAC 30 MG/ML 1 ML VIAL IVP SCH (19:42)
[2021-03-30] MEDS: ERTAPENEM 1 GM in SODIUM CHLORIDE 0.9% 50 ML IVPB SCH (22:41)
[2021-03-30] MEDS: ONDANSETRON 4 MG/2 ML VIAL IVP PRN (23:25)
[2021-03-31] MEDS: SODIUM CHLORIDE 0.9% 1,000 ML IV SCH ×2 (05:12→22:57)
[2021-03-31] MEDS: KETOROLAC 30 MG/ML 1 ML VIAL IVP SCH ×5 (05:13→23:25)
[2021-03-31] MEDS: PANTOPRAZOLE 40 MG TABLET PO SCH (09:43)
[2021-03-31] MEDS: amLODIPine 2.5 MG TAB PO SCH ×2 (09:44→21:43)
--- NOTE | 2021-03-31 11:28 | P.PN ---
<Patience Sol - Last Filed: 03/31/21 11:25> Subjective Progress Note Date: 03/31/21 CHIEF COMPLAINT: Diverticulitis HISTORY OF PRESENT ILLNESS: Patient reports decrease in her abdominal pain. Pain is still located in the left lower quadrant and is worse with movement. Yesterday she had rated her pain about a 10 out of 10 and is now rating it about a 2 out of 10. She denies any bowel movements. Denies any nausea vomiting. Tolerating clear liquid diet. Afebrile. PHYSICAL EXAM: VITAL SIGNS: Reviewed. GENERAL: Well-developed in no acute distress. HEENT: No sclera icterus. Extraocular movements grossly intact. Moist buccal mucosa. Head is atraumatic, normocephalic. ABDOMEN: Soft. Nondistended. Tenderness with palpation left lower quadrant. NEUROLOGIC: Alert and oriented. Cranial nerves II through XII grossly intact. ASSESSMENT: 1. Acute sigmoid diverticulitis PLAN: -Continue antibiotics per ID -Continue clear liquid diet -Continue pain medication as needed Physician Commercial Shrimping Captain note has been reviewed by physician. Signing provider agrees with the documented findings, assessment, and plan of care. Objective - Vital Signs Vital signs: Vital Signs Temp 97.8 F 03/31/21 05:45 Pulse 82 03/31/21 05:45 Resp 18 03/31/21 05:45 BP 137/74 03/31/21 05:45 Pulse Ox 92 L 03/31/21 05:45 Intake & Output 03/30/21 03/31/21 03/31/21 18:59 06:59 18:59 Weight 83.915 kg Other: # Voids 1 - Labs CBC & Chem 7: 03/29/21 23:45 03/29/21 23:45 Labs: Microbiology - Last 24 Hours (Table) 03/30/21 02:00 Blood Culture - Preliminary Blood No Growth after 24 hours 03/30/21 01:45 Blood Culture - Preliminary Blood No Growth after 24 hours <Rd Mata - Last Filed: 03/31/21 11:34> Subjective I have personally seen and examined the patient, reviewed the HOME CARE RN /PAs history, exam and MDM and agree with the assessment and plan as written. Based on total visit time, I have performed more than 50% of the visit. As above. Patient doing well today. Pain is improved. Able to get up and move about quite easily. No bowel movement however she is passing flatus. She is afebrile. Will increase diet to full liquids. Continue antibiotics. Objective - Vital Signs Vital signs: Vital Signs Temp 97.5 F L 03/31/21 11:28 Pulse 79 03/31/21 11:28 Resp 17 03/31/21 11:28 BP 144/85 03/31/21 11:28 Pulse Ox 94 L 03/31/21 11:28 Intake & Output 03/30/21 03/31/21 03/31/21 18:59 06:59 18:59 Weight 83.915 kg Other: # Voids 1 - Labs CBC & Chem 7: 03/29/21 23:45 03/29/21 23:45 Labs: Microbiology - Last 24 Hours (Table) 03/30/21 02:00 Blood Culture - Preliminary Blood No Growth after 24 hours 03/30/21 01:45 Blood Culture - Preliminary Blood No Growth after 24 hours Assessment and Plan (1) Acute diverticulitis Current Visit: No Status: Acute Code(s): K57.92 - DVTRCLI OF INTEST, PART UNSP, W/O PERF OR ABSCESS W/O BLEED SNOMED Code(s): 296181908
--- NOTE | 2021-03-31 11:32 | P.PN ---
Subjective Progress Note Date: 03/31/21 HISTORY OF PRESENT ILLNESS This is a 70-year-old female patient of Dr. Alva's medical history of hypertension and hypertensive cardiovascular disease, obstructive sleep apnea, generalized anxiety disorder. Patient presented to the hospital with complaints of left lower quadrant abdominal pain and she states this has been going on for 4 days. She has had nausea without vomiting without diarrhea. She is constipated she did take magnesium citrate on Monday. Pain is under control as long as she does not move. Patient's last colonscopy at [facility] finding diverticulitis. She has had a previous bouts of diverticulitis without perforation without abscess in 2019 treated with IV antibiotics with Invanz. Patient had ALLERGIC reaction to Flagyl and ciprofloxacin. Patient was found to be afebrile, heart rate 108, blood pressure 172/87, pulse ox 96% on room air. CBC was unremarkable. Sodium 133, potassium 4.4, chloride 97, otherwise electrolytes and renal function normal. Blood sugar 101. Total bilirubin 0.9, AST 20, ALT 23, alkaline phosphatase 138. Lactic acid 1.1. Urinalysis cloudy, ketones 4+, leukoesterase moderate, wbc's 10 squamous cells 13. Chronic virus PCR not detected. CAT scan of the abdomen and pelvis with contrast revealed sigmoid diverticulitis. No drainable fluid collection. Inflammatory changes increase compared to old exams. There is also focal mild diverticulitis of the mid descending colon. Patient seen today in the ER waiting for a bed [facility]. 03/31: Patient has been seen by Dr. Mata with recommendations to continuecurrent plan, possible ID consult and continue clear liquid diet. Toradol and Tylenol f or pain control. Consult added for Dr. Mercado. Patient has been afebrile, heart rate 82, blood pressure 137/74, pulse ox 92% on room air. Blood cultures no growth after 24 hours. Patient states that her pain is slowly improving. She is able to get out of bed without significant pain. REVIEW OF SYSTEMS Constitutional: No fever, no chills, no night sweats. No weight change. No weakness, fatigue or lethargy. No daytime sleepiness. EENT: No headache. No blurred vision or double vision, no loss of vision. No loss of Hearing, no ringing in the ears, no dizziness. No nasal drainage or congestion. No epistaxis. No sore throat. Lungs: No shortness of breath, cough, no sputum production. No wheezing. Cardiovascular: No chest pain, no lower extremity edema. No palpitations. No paroxysmal nocturnal dyspnea. No orthopnea. No lightheadedness or dizziness. No syncopal episodes. Abdominal: Reports abdominal pain. Reports nausea-improved, no vomiting. No diarrhea. Reports constipation. No bloody or tarry stools. Reports loss of appetite. Genitourinary: No dysuria, increased frequency, urgency. No urinary retention. Musculoskeletal: No myalgias. No muscle weakness, no gait dysfunction, no frequent falls. No back pain. No neck pain. Integumentary: No wounds, no lesions. No rash or pruritus. No unusual bruising. No change in hair or nails. Neurologic: No aphasia. No facial droop. No change in mentation. No head injury. No headache. No paralysis. No paresthesia. Psychiatric: No depression. No anxiety. No mood swings. Endocrine: No abnormal blood sugars. No weight change. No excessive sweating or thirst. No cold intolerance. PHYSICAL EXAMINATION Gen: This is a 70-year-old female resting in bed and appers to be in any acute distress. HEENT: Head is atraumatic, normocephalic. Pupils equal, round. Sclerae is anicteric. NECK: Supple. No JVD. No lymphadenopathy. No thyromegaly. LUNGS: Clear to auscultation. No wheezes or rhonchi. No intercostal retractions. HEART: Regular rate and rhythm. No murmur. ABDOMEN: Soft. Bowel sounds are present. No masses. Right-sided and left lower quadrant tenderness. EXTREMITIES: No pedal edema. No calf tenderness. Dorsalis pedis +2 bilaterally. NEUROLOGICAL: Patient is awake, alert and oriented x3. Cranial nerves 2 through 12 are grossly intact. ASSESSMENT AND PLAN 1. Acute diverticulitis. Consult with Dr. Esperanza sanchez. Continue IV fluids, morphine as needed for pain, Zofran as needed for nausea, Invanz 1 g IV piggyback daily. Patient is currently on a clear liquid diet. Consult added for Dr. Mercado. 2. Hypertension, hypertensive cardiovascular disease. Continue amlodipine 2.5 mg twice daily. 3. Hyperlipidemia. Continue low cholesterol diet follow. 4. Obesity with obstructive sleep apnea. Discussed with the patient the importance of using the CPAP, as this may be the single most appropriate for her and controlled hypertension. 5. Recurrent urinary tract infection. No UTI this point. 6. DVT prophylaxis. Early ambulation, SCDs and FRANCIA hose. 8. GI prophylaxis. Protonix. 9. COVID-19 testing negative. Patient has been hospitalized during a pandemic. DISCHARGE PLAN Home Impression and plan of care have been directed as dictated by the signing physician. Rozina Chamberlain nurse practitioner acting as scribe for signing physician. Objective - Vital Signs Vital signs: Vital Signs Temp 97.8 F 03/31/21 05:45 Pulse 82 03/31/21 05:45 Resp 18 03/31/21 05:45 BP 137/74 03/31/21 05:45 Pulse Ox 92 L 03/31/21 05:45 Intake & Output 03/30/21 03/31/21 03/31/21 18:59 06:59 18:59 Weight 83.915 kg Other: # Voids 1 - Labs CBC & Chem 7: 03/29/21 23:45 03/29/21 23:45 Labs: Microbiology - Last 24 Hours (Table) 03/30/21 02:00 Blood Culture - Preliminary Blood No Growth after 24 hours 03/30/21 01:45 Blood Culture - Preliminary Blood No Growth after 24 hours
[2021-03-31 13:51] VITALS: BMI 32.8
[2021-03-31] MEDS: ALPRAZolam 0.25 MG TAB PO PRN (16:18)
[2021-03-31] MEDS: ONDANSETRON 4 MG/2 ML VIAL IVP PRN (21:44)
[2021-03-31] MEDS ORDERED: diphenhydrAMINE 25 MG CAP PO PRN (22:00)
[2021-03-31] MEDS: ERTAPENEM 1 GM in SODIUM CHLORIDE 0.9% 50 ML IVPB SCH (22:10)
[2021-04-01] MEDS: KETOROLAC 30 MG/ML 1 ML VIAL IVP SCH (04:26)
--- NOTE | 2021-04-01 08:39 | P.CONS ---
History of Present Illness - Reason for Consult Consult date: 03/31/21 diverticulitis Requesting physician: Russel Alva - Chief Complaint abd pain x 2 days - History of Present Illness History of present illness : Patient is 70-year female with a past medical history significant for recurrent diverticulitis patient presenting to the ER early in the morning yesterday for evaluation of abdominal pain that has been going on for 2 days before presentation to the hospital patient was complaining of abdominal pain to be more of a dull aching at times sharp in quality intensity has gradually increased over the next 2 days to be almost 10 out of 10 in severity with no radiation patient did have associated nausea but no vomiting was taking some laxatives and did have some diarrhea with this and the patient did present to the hospital on arrival to the ER the patient was afebrile did have a normal white count urine has been mildly positive blood cultures obtained which are currently pending patient did have a CT of abdominal pelvis with evidence of sigmoid diverticulitis no drainable fluid collection intimately has increased compared to old exam with also focal mild radiculitis of the mid descending colon patient was started on Invanz because of her multiple antibiotic allergies infectious disease was consulted for further management of antibiotics and arrangement for outpatient IV antibiotics in view of her multiple allergies Review of system: CONSTITUTIONAL: Positive for weakness denies high-grade fever. EYES: No complaint. ENT: No complaint. RESPIRATORY: No complaint. CARDIOVASCULAR: No complaint. GENITOURINARY: No complaint. GASTROINTESTINAL: As per history of present illness. MUSCULOSKELETAL: No complaint. INTEGUMENTARY: No complaint. PSYCHOLOGIC: No complaint. ENDOCRINE: No complaint. NEUROLOGIC: No complaint. Past medical history : Reviewed, documented below Past surgical history : Reviewed, documented below Social history: Reviewed, documented below Medications: Reviewed, as documented below EXAMINATION: Vital sigans= Reviewed and documented below GENERAL DESCRIPTION: Elderly female lying in bed, no distress. No tachypnea or accessory muscle of respiration use. HEENT: Shows Pallor , no scleral icterus. Oral mucous membrane is dry. NECK: Trachea central, no thyromegaly. LUNGS: Unlabored breathing. Clear to auscultation anteriorly. No wheeze or crackle. HEART: S1, S2, regular rate and rhythm. ABDOMEN: Soft, mild left lower quadrant tenderness , no guarding or rigidity EXTREMITIES: No edema of feet. SKIN: No rash, no masses palpable. NEUROLOGICAL: The patient is awake, alert, oriented x3, mood and affect normal. LABS AND RADIOLOGY: Reviewed results see below Assessment : 1-Patient presented to hospital with abdominal pain of 2 days duration this patient did have evidence of sigmoid diverticulitis with some involvement of the mid descending colon will require further gram-negative both aerobes and anaerobes with no evidence of any drainable abscess or complication such as perforation 2-patient with multiple antibiotic allergies that would limit the number of antibiotics safe to use Plan: 1-Invanz 1 g daily 2-obtain her midline for outpatient IV Invanz x12 days 3-bowel rest We will follow on clinical condition and cultures to further adjust medication if needed Thank you for this consultation we will follow the patient along with you Past Medical History Past Medical History: Chest Pain / Angina, Hyperlipidemia, Hypertension, Sleep Apnea/CPAP/BIPAP Additional Past Medical History / Comment(s): Diverticulitis, KARSTEN but has not used Cpap for 1 year, recurrent UTIs, L carpal tunnel syndrome, anemia as an . History of Any Multi-Drug Resistant Organisms: None Reported Past Surgical History: Appendectomy, Heart Catheterization, Tonsillectomy, Tubal Ligation Additional Past Surgical History / Comment(s): exploratory lap for ovarian cyst, colonoscopies. Past Anesthesia/Blood Transfusion Reactions: Previous Problems w/ Anesthesia Additional Past Anesthesia/Blood Transfusion Reaction / Comm: STATES HARD TO WAKE UP AFTER 1 ST COLONOSCOPY Smoking Status: Current some day smoker, Light tobacco smoker - Past Family History Mother Family Medical History: Cancer, Coronary Artery Disease (CAD), Myocardial Infarction (HI) Additional Family Medical History / Comment(s): Mother is from colon cancer. She had PTCA. Father Family Medical History: Coronary Artery Disease (CAD), Myocardial Infarction (HI), Renal Disease Additional Family Medical History / Comment(s): Father is from renal failure. He had PTCA Sister(s) Family Medical History: No Reported History Brother(s) Family Medical History: Coronary Artery Disease (CAD) Son(s) Family Medical History: No Reported History Medications and Allergies Home Medications Medication Instructions Recorded Confirmed Type ALPRAZolam [Xanax] 0.25 tab PO BID PRN 10/21/18 03/30/21 History amLODIPine BESYLATE [Norvasc] 2.5 mg PO BID 10/21/18 03/30/21 History Allergies Allergy/AdvReac Type Severity Reaction Status Date / Time codeine Allergy Itching Verified 03/30/21 07:03 levofloxacin [From Levaquin] Allergy Rash/Hives Verified 03/30/21 07:03 losartan Allergy Swelling Verified 03/30/21 07:03 metronidazole [From Flagyl] Allergy Unknown Verified 03/30/21 07:03 Penicillins Allergy Rash/Hives Verified 03/30/21 07:03 Sulfa (Sulfonamide Allergy Unknown Verified 03/30/21 07:03 Antibiotics) benazepril [From Lotensin] AdvReac Cough Verified 03/30/21 07:03 Physical Exam Vitals: Vital Signs Temp Pulse Pulse Pulse Resp BP BP 03/31/21 11:28 97.5 F L 79 17 144/85 03/31/21 05:45 97.8 F 82 18 137/74 03/31/21 03:03 97.5 F L 87 18 169/84 03/31/21 00:00 86 18 169/82 Pulse Ox 03/31/21 11:28 94 L 03/31/21 05:45 92 L 03/31/21 03:03 93 L 03/31/21 00:00 97 Intake and Output 03/31/21 03/31/21 03/31/21 06:59 14:59 22:59 Other: # Voids 1 2 Weight 83.915 kg Results CBC & Chem 7: 03/29/21 23:45 03/29/21 23:45 Labs: Microbiology - Last 24 Hours (Table) 03/30/21 02:00 Blood Culture - Preliminary Blood No Growth after 24 hours 03/30/21 01:45 Blood Culture - Preliminary Blood No Growth after 24 hours
[2021-04-01] MEDS: amLODIPine 2.5 MG TAB PO SCH (08:47)
[2021-04-01] MEDS: PANTOPRAZOLE 40 MG TABLET PO SCH (08:47)
[2021-04-01 10:13] LABS: Basophils % (A) 0 %; Eosinophils # (A) 0.1 k/uL (0-0.7); Eosinophils % (A) 2 %; HCT 39.8 % (34.0-46.0); HGB 12.9 gm/dL (11.4-16.0); Lymphocytes # (A) 1.2 k/uL (1.0-4.8); Lymphocytes % (A) 21 %; MCH 29.4 pg (25.0-35.0); MCHC 32.5 g/dL (31.0-37.0); MCV 90.5 fL (80.0-100.0); Mean Platelet Volume 7.5; Monocytes # (A) 0.5 k/uL (0-1.0); Monocytes % (A) 8 %; Neutrophils # (A) 3.9 k/uL (1.3-7.7); Neutrophils % (A) 68 %; Platelet Count 289 k/uL (150-450); RDW 12.7 % (11.5-15.5); WBC 5.8 k/uL (3.8-10.6)
[2021-04-01 10:22] LABS: Calcium 9.6 mg/dL (8.4-10.2); Potassium 3.8 mmol/L (3.5-5.1)
--- NOTE | 2021-04-01 11:00 | P.PN ---
<Patience Sol - Last Filed: 04/01/21 10:56> Subjective Progress Note Date: 04/01/21 CHIEF COMPLAINT: Diverticulitis HISTORY OF PRESENT ILLNESS: Patient reports that she had increase in her abdominal pain yesterday after eating a full bowl of oatmeal. She required morphine at that time. She describes her pain is a pinching sensation left lower quadrant and rates it about a 2 out of 10. She is having flatus with some nausea. Yesterday she also developed a rash on her back and chest requiring Benadryl. Afebrile WBC is 5.8 sodium 131 Cr 0.80. PHYSICAL EXAM: VITAL SIGNS: Reviewed. GENERAL: Well-developed in no acute distress. HEENT: No sclera icterus. Extraocular movements grossly intact. Moist buccal mucosa. Head is atraumatic, normocephalic. ABDOMEN: Soft. Nondistended. Tenderness with palpation left lower quadrant. NEUROLOGIC: Alert and oriented. Cranial nerves II through XII grossly intact. ASSESSMENT: 1. Acute sigmoid diverticulitis PLAN: -Patient scheduled for mid line placement today for IV antibiotics at home -Continue antibiotics per ID -Continue full liquid diet -Add ensure -Continue pain medication as needed -Continue to monitor Physician Gut Puller note has been reviewed by physician. Signing provider agrees with the documented findings, assessment, and plan of care. Objective - Vital Signs Vital signs: Vital Signs Temp 98.3 F 04/01/21 08:00 Pulse 82 04/01/21 08:00 Resp 16 04/01/21 08:00 BP 145/78 04/01/21 08:00 Pulse Ox 97 04/01/21 08:00 Intake & Output 03/31/21 04/01/21 04/01/21 18:59 06:59 18:59 Weight 83.915 kg Other: # Voids 2 - Labs CBC & Chem 7: 04/01/21 09:42 04/01/21 09:42 Labs: Abnormal Lab Results - Last 24 Hours (Table) 04/01/21 Range/Units 09:42 Sodium 131 L (137-145) mmol/L Chloride 94 L (98-107) mmol/L Glucose 108 H (74-99) mg/dL Microbiology - Last 24 Hours (Table) 03/30/21 02:00 Blood Culture - Preliminary Blood No Growth after 48 hours 03/30/21 01:45 Blood Culture - Preliminary Blood No Growth after 48 hours <Rd Mata - Last Filed: 04/01/21 14:19> Subjective I have personally seen and examined the patient, reviewed the LAST INSERTER /PAs history, exam and MDM and agree with the assessment and plan as written. Based on total visit time, I have performed more than 50% of the visit. Patient doing well today. Pain is improved. Tolerating full liquid diet thus far. Going home on IV antibiotics. Abdominal exam shows only mild tenderness left lower quadrant. May discharge. Follow-up in office. Objective - Vital Signs Vital signs: Vital Signs Temp 98.0 F 04/01/21 12:00 Pulse 81 04/01/21 12:00 Resp 14 04/01/21 12:00 BP 140/76 04/01/21 12:00 Pulse Ox 98 04/01/21 12:00 Intake & Output 03/31/21 04/01/21 04/01/21 18:59 06:59 18:59 Weight 83.915 kg Other: # Voids 2 - Labs CBC & Chem 7: 04/01/21 09:42 04/01/21 09:42 Labs: Abnormal Lab Results - Last 24 Hours (Table) 04/01/21 Range/Units 09:42 Sodium 131 L (137-145) mmol/L Chloride 94 L (98-107) mmol/L Glucose 108 H (74-99) mg/dL Microbiology - Last 24 Hours (Table) 03/30/21 02:00 Blood Culture - Preliminary Blood No Growth after 48 hours 03/30/21 01:45 Blood Culture - Preliminary Blood No Growth after 48 hours Assessment and Plan (1) Acute diverticulitis Current Visit: No Status: Acute Code(s): K57.92 - DVTRCLI OF INTEST, PART UNSP, W/O PERF OR ABSCESS W/O BLEED SNOMED Code(s): 967521956
--- NOTE | 2021-04-01 13:20 | P.DS ---
Providers Date of admission: 03/30/21 12:15 Expected date of discharge: 04/01/21 Attending physician: Russel Alva Consults: 03/30/21 11:00 Consult Physician Routine Consulting Provider: Rd Mata Consult Reason/Comments: diverticulitis Do you want consulting provider notified?: Yes 03/31/21 10:03 Consult Physician Routine Consulting Provider: Arash Mercado Consult Reason/Comments: Diverticulitis, possible IV antibiotics, multiple antibiotic ALLERGIES Do you want consulting provider notified?: Yes Primary care physician: [facility] Course: HISTORY OF PRESENT ILLNESS This is a 70-year-old female patient of Dr. Alva's medical history of hypertension and hypertensive cardiovascular disease, obstructive sleep apnea, generalized anxiety disorder. Patient presented to the hospital with complaints of left lower quadrant abdominal pain and she states this has been going on for 4 days. She has had nausea without vomiting without diarrhea. She is constipated she did take magnesium citrate on Monday. Pain is under control as long as she does not move. Patient's last colonscopy at [facility] finding diverticulitis. She has had a previous bouts of diverticulitis without perforation without abscess in 2019 treated with IV antibiotics with Invanz. Patient had ALLERGIC reaction to Flagyl and ciprofloxacin. Patient was found to be afebrile, heart rate 108, blood pressure 172/87, pulse ox 96% on room air. CBC was unremarkable. Sodium 133, potassium 4.4, chloride 97, otherwise electrolytes and renal function normal. Blood sugar 101. Total bilirubin 0.9, AST 20, ALT 23, alkaline phosphatase 138. Lactic acid 1.1. Urinalysis cloudy, ketones 4+, leukoesterase moderate, wbc's 10 squamous cells 13. Chronic virus PCR not detected. CAT scan of the abdomen and pelvis with contrast revealed sigmoid diverticulitis. No drainable fluid collection. Inflammatory changes increase compared to old exams. There is also focal mild diverticulitis of the mid descending colon. Patient seen today in the ER waiting for a bed on the med-surg floor. 03/31: Patient has been seen by Dr. Mata with recommendations to continuecurrent plan, possible ID consult and continue clear liquid diet. Toradol and Tylenol for pain control. Consult added for Dr. Mercado. Patient has been afebrile, heart rate 82, blood pressure 137/74, pulse ox 92% on room air. Blood cultures no growth after 24 hours. Patient states that her pain is slowly improving. She is able to get out of bed without significant pain. 04/01: Patient has been afebrile, heart rate 82, blood pressure 145/78, pulse ox 97% on room air. Repeat CBC unremarkable. Blood culture no growth at 48 hours. Patient has been seen by Dr. Mercado with plan for Invanz for 12 days as an outpatient. Midline will be ordered. She did have a mild rash developed to her back last evening and started on Benadryl. Rash seems to be controlled at this time. Patient states that she did have some difficulty after eating oatmeal yesterday for pain is better now. No bowel movements and she complains of constipation. Patient will be discharged home today once arrangements are completed. DISCHARGE DIAGNOSES 1. Acute diverticulitis. 2. Hypertension, hypertensive cardiovascular disease. 3. Hyperlipidemia. 4. Obesity with obstructive sleep apnea. 5. Recurrent urinary tract infection. 6. COVID-19 testing negative. Patient has been hospitalized during a pandemic. DISCHARGE PLAN Home with IV antibiotics Greater than 35 minutes was utilized and coordinating patient's discharge. Impression and plan of care have been directed as dictated by the signing physician. Rozina Chamberlain nurse practitioner acting as scribe for signing physician. Patient Condition at Discharge: Good Plan - Discharge Summary Discharge Rx Participant: No New Discharge Prescriptions: New Ertapenem [INVanz] 1 gm IVPB DAILY@2200 #12 each diphenhydrAMINE [Benadryl] 25 mg PO Q6H PRN cap PRN Reason: Itching Continue ALPRAZolam [Xanax] 0.25 tab PO BID PRN PRN Reason: Anxiety amLODIPine BESYLATE [Norvasc] 2.5 mg PO BID Discharge Medication List ALPRAZolam [Xanax] 0.25 tab PO BID PRN 10/21/18 [History] amLODIPine BESYLATE [Norvasc] 2.5 mg PO BID 10/21/18 [History] Ertapenem [INVanz] 1 gm IVPB DAILY@2200 #12 each 04/01/21 [Rx] diphenhydrAMINE [Benadryl] 25 mg PO Q6H PRN cap 04/01/21 [Rx] Follow up Appointment(s)/Referral(s): dR Mata MD [Medical Doctor] - 1 Week Russel Alva MD [Primary Care Provider] - 1 Week [facility] [NON-STAFF] - 1 Week Arash Mercado MD [STAFF PHYSICIAN] - 1 Week Discharge Disposition: HOME WITH HOME HEALTH SERVICES
--- NOTE | 2021-04-01 14:09 | PN ---
PROGRESS NOTE DATE OF SERVICE: 04/01/2021. REASON FOR FOLLOW UP: Acute diverticulitis with multiple antibiotic allergies. INTERVAL HISTORY: The patient is afebrile. The patient is breathing comfortably. The patient's abdominal pain is slightly decreased in intensity. No nausea. No vomiting. No diarrhea. The patient is constipated. PHYSICAL EXAMINATION: Blood pressure 145/78 with a pulse of 82, temperature 98.6. She is 97% on room air. General description is an elderly female up in the chair in no distress. Respiratory system: Unlabored breathing, clear to auscultation. Heart S1, S2. Regular rate and rhythm. Abdomen soft, no tenderness. LABS: White count 5.8, creatinine 0.80. DIAGNOSTIC IMPRESSION AND PLAN: Patient with acute sigmoid diverticulitis with involvement of the descending colon with ( ) antibiotic allergies, responded to Invanz. Continue for 12 days to finish a two week course of therapy and close outpatient followup. MMODL / ARONN: [id number] /
[2021-04-01 14:15] VITALS: BP 140/76; PULSE 81; RESP 14; TEMP 98
[2021-04-01] MEDS: ERTAPENEM 1 GM in SODIUM CHLORIDE 0.9% 50 ML IVPB SCH (14:50)
== END 2021-04-01 16:23 | disposition home or self-care (01) | DRG 392 ==
LOC: EC 21:18 → 6NMEDSUR 03-30 03:53 → OBSVTOIN 03-30 12:15 → 5NMEDONC 03-30 18:04 → 4FBP 03-31 17:12
PROVIDERS: ADMIT Internal Medicine Geriatric Medicine; ATTEND Internal Medicine Geriatric Medicine
PROC: 05HC33Z Insertion of Infusion Device into Left Basilic Vein, Percutaneous Approach (ICD-10-PCS; principal; 2021-04-01 13:10)
DX: K57.32 Diverticulitis of large intestine without perforation or abscess without bleeding (principal); N39.0 Urinary tract infection, site not specified; I11.9 Hypertensive heart disease without heart failure; E66.9 Obesity, unspecified; Z20.822 Contact with and (suspected) exposure to COVID-19; G47.33 Obstructive sleep apnea (adult) (pediatric); Z68.32 Body mass index [BMI] 32.0-32.9, adult; E78.5 Hyperlipidemia, unspecified; F41.1 Generalized anxiety disorder; K59.00 Constipation, unspecified; R21 Rash and other nonspecific skin eruption; M19.90 Unspecified osteoarthritis, unspecified site; G56.02 Carpal tunnel syndrome, left upper limb; Z79.899 Other long term (current) drug therapy; Z87.440 Personal history of urinary (tract) infections; Z88.1 Allergy status to other antibiotic agents; Z88.5 Allergy status to narcotic agent; Z88.0 Allergy status to penicillin; Z88.2 Allergy status to sulfonamides; Z88.8 Allergy status to other drugs, medicaments and biological substances; Z90.49 Acquired absence of other specified parts of digestive tract; Z90.89 Acquired absence of other organs; Z98.51 Tubal ligation status; Z87.42 Personal history of other diseases of the female genital tract; Z86.2 Personal history of diseases of the blood and blood-forming organs and certain disorders involving the immune mechanism; Z98.890 Other specified postprocedural states; Z71.3 Dietary counseling and surveillance; Z82.49 Family history of ischemic heart disease and other diseases of the circulatory system; Z80.0 Family history of malignant neoplasm of digestive organs; Z84.1 Family history of disorders of kidney and ureter; Z83.79 Family history of other diseases of the digestive system
CPT/HCPCS: 36410; 36415; 74177; 76937; 80048; 80053; 81001; 83605; 83690; 85025; 87040; 87635; 96365; 96375; 96376; 99285

== ENCOUNTER 2021-12-31 13:57 | Emergency (ER) | payer MEDICARE, OTHER ==
[2021-12-31] MEDS ORDERED: PANTOPRAZOLE 40 MG/10 ML VIAL IVP STA (16:25)
[2021-12-31] MEDS ORDERED: ONDANSETRON 4 MG/2 ML VIAL IVP STA (16:25)
[2021-12-31] MEDS ORDERED: SODIUM CHLORIDE 0.9% 500 ML 500 ML IV STA (16:25)
--- NOTE | 2021-12-31 16:31 | ED ---
Abdominal Pain HPI - General Chief Complaint: Abdominal Pain Stated Complaint: ABD Pain Time Seen by Provider: 12/31/21 16:18 Source: patient, RN notes reviewed, old records reviewed Mode of arrival: ambulatory Limitations: no limitations - History of Present Illness Initial Comments: Well-appearing 71-year-old female presents ambulatory to [facility] with complaints of 10 days of abdominal pain. Patient states it feels similar to her diverticulitis in the past. She did go to urgent care after 5 days of discomfort and they put her on Invanz due to her several allergies to treat her for diverticulitis. She finished her antibiotcs yesterday and continues to have symptoms of discomfort, constipation, nausea and chills. States that she is passing gas and is not vomiting. She is a nonsmoker. Surgical history of appendectomy. MD Complaint: abdominal pain -: days(s) (10) Location: diffuse Severity scale (1-10): 6 Quality: cramping Consistency: intermittent Improves With: nothing Associated Symptoms: nausea, chills, constipation Treatments Prior to Arrival: other (antibiotics) - Related Data Patient : No Home Medications Medication Instructions Recorded Confirmed ALPRAZolam [Xanax] 0.25 tab PO BID PRN 10/21/18 03/30/21 amLODIPine BESYLATE [Norvasc] 2.5 mg PO BID 10/21/18 03/30/21 Previous Rx's Medication Instructions Recorded Ertapenem [INVanz] 1 gm IVPB DAILY@2200 #12 each 04/01/21 diphenhydrAMINE [Benadryl] 25 mg PO Q6H PRN cap 04/01/21 Docusate [Colace] 100 mg PO DAILY PRN #30 capsule 12/31/21 Allergies Allergy/AdvReac Type Severity Reaction Status Date / Time codeine Allergy Itching Verified 12/31/21 14:55 levofloxacin [From Levaquin] Allergy Rash/Hives Verified 12/31/21 14:55 losartan Allergy Swelling Verified 12/31/21 14:55 metronidazole [From Flagyl] Allergy Unknown Verified 12/31/21 14:55 Penicillins Allergy Rash/Hives Verified 12/31/21 14:55 Sulfa (Sulfonamide Allergy Unknown Verified 12/31/21 14:55 Antibiotics) benazepril [From Lotensin] AdvReac Cough Verified 12/31/21 14:55 Review of Systems ROS Statement: Those systems with pertinent positive or pertinent negative responses have been documented in the HPI. ROS Other: All systems not noted in ROS Statement are negative. Past Medical History Past Medical History: Chest Pain / Angina, Hyperlipidemia, Hypertension, Sleep Apnea/CPAP/BIPAP Additional Past Medical History / Comment(s): Diverticulitis, KARSTEN but has not used Cpap for 1 year, recurrent UTIs, L carpal tunnel syndrome, anemia as an . History of Any Multi-Drug Resistant Organisms: None Reported Past Surgical History: Appendectomy, Heart Catheterization, Tonsillectomy, Tubal Ligation Additional Past Surgical History / Comment(s): exploratory lap for ovarian cyst, colonoscopies. Past Anesthesia/Blood Transfusion Reactions: Previous Problems w/ Anesthesia Additional Past Anesthesia/Blood Transfusion Reaction / Comment(s): STATES HARD TO WAKE UP AFTER 1 ST COLONOSCOPY Past Psychological History: Anxiety Smoking Status: Current some day smoker, Light tobacco smoker - Past Family History Mother Family Medical History: Cancer, Coronary Artery Disease (CAD), Myocardial Infarction (MD) Additional Family Medical History / Comment(s): Mother is from colon cancer. She had PTCA. Father Family Medical History: Coronary Artery Disease (CAD), Myocardial Infarction (MD), Renal Disease Additional Family Medical History / Comment(s): Father is from renal failure. He had PTCA Sister(s) Family Medical History: No Reported History Brother(s) Family Medical History: Coronary Artery Disease (CAD) Son(s) Family Medical History: No Reported History General Exam Limitations: no limitations General appearance: alert, in no apparent distress Head exam: Present: atraumatic Respiratory exam: Present: normal lung sounds bilaterally. Absent: respiratory distress, wheezes, rales, rhonchi, stridor, chest wall tenderness, accessory muscle use, decreased breath sounds Cardiovascular Exam: Present: regular rate GI/Abdominal exam: Present: soft. Absent: distended, tenderness, guarding, rebound, rigid Back exam: Absent: CVA tenderness (R), CVA tenderness (L) Neurological exam: Present: alert, oriented X3 Psychiatric exam: Present: normal affect, normal mood Skin exam: Present: warm, dry, normal color. Absent: cyanosis, diaphoretic Course Vital Signs 12/31/21 12/31/21 12/31/21 14:51 19:00 19:36 Temperature 98.3 F 97.9 F 97.7 F Pulse Rate 89 78 77 Respiratory 18 18 17 Rate Blood Pressure 158/96 194/103 186/111 O2 Sat by Pulse 98 97 96 Oximetry Medical Decision Making - Medical Decision Making Labs show no evidence of leukocytosis. Electrolytes unremarkable. Urinalysis is clear of infection. CT the abdomen and pelvis shows some colonic diverticulosis without diverticulitis. Clearing of inflammatory changes in the proximal sigmoid colon compared to March of this year. There is no evidence of free fluid in the pelvis. No masses. Liver and spleen stomach and pancreas gallbladder all intact. On physical exam patient's abdomen is soft nontender. She has no complaints of chest pain or difficulty breathing. No fevers. She does have a history of sonia endectomy and hypertension. Patient states that she does feel constipated. She was given a prescription for Colace and instructed to increase her fluid intake. Follow-up with her primary care doctor next week and return to the emergency room with any new or concerning symptoms. Case discussed with Dr. Navarrete - Lab Data Result diagrams: 12/31/21 16:47 12/31/21 16:47 Lab Results 12/31/21 12/31/21 12/31/21 Range/Units 16:47 16:47 16:47 WBC 6.6 (3.8-10.6) k/uL RBC 4.75 (3.80-5.40) m/uL Hgb 14.1 (11.4-16.0) gm/dL Hct 41.0 (34.0-46.0) % MCV 86.5 (80.0-100.0) fL MCH 29.8 (25.0-35.0) pg MCHC 34.4 (31.0-37.0) g/dL RDW 12.1 (11.5-15.5) % Plt Count 251 (150-450) k/uL MPV 7.9 Neutrophils % 70 % Lymphocytes % 22 % Monocytes % 6 % Eosinophils % 1 % Basophils % 0 % Neutrophils # 4.6 (1.3-7.7) k/uL Lymphocytes # 1.4 (1.0-4.8) k/uL Monocytes # 0.4 (0-1.0) k/uL Eosinophils # 0.1 (0-0.7) k/uL Basophils # 0.0 (0-0.2) k/uL PT (9.0-12.0) sec INR (<1.2) APTT (22.0-30.0) sec Sodium 130 L (137-145) mmol/L Potassium 4.2 (3.5-5.1) mmol/L Chloride 93 L (98-107) mmol/L Carbon Dioxide 24 (22-30) mmol/L Anion Gap 13 mmol/L BUN 7 (7-17) mg/dL Creatinine 0.73 (0.52-1.04) mg/dL Est GFR (CKD-EPI)AfAm >90 (>60 ml/min/1.73 sqM) Est GFR (CKD-EPI)NonAf 85 (>60 ml/min/1.73 sqM) Glucose 102 H (74-99) mg/dL Plasma Lactic Acid Lester 1.1 (0.7-2.0) mmol/L Calcium 9.6 (8.4-10.2) mg/dL Total Bilirubin 0.8 (0.2-1.3) mg/dL AST 25 (14-36) U/L ALT 23 (4-34) U/L Alkaline Phosphatase 128 H (38-126) U/L Total Protein 7.7 (6.3-8.2) g/dL Albumin 5.0 (3.5-5.0) g/dL Amylase 47 (30-110) U/L Lipase 48 (23-300) U/L Urine Color Urine Appearance (Clear) Urine pH (5.0-8.0) Ur Specific [place] (1.001-1.035) Urine Protein (Negative) Urine Glucose (UA) (Negative) Urine Ketones (Negative) Urine Blood (Negative) Urine Nitrite (Negative) Urine Bilirubin (Negative) Urine Urobilinogen (<2.0) mg/dL Ur Leukocyte Esterase (Negative) 12/31/21 12/31/21 Range/Units 16:47 16:47 WBC (3.8-10.6) k/uL RBC (3.80-5.40) m/uL Hgb (11.4-16.0) gm/dL Hct (34.0-46.0) % MCV (80.0-100.0) fL MCH (25.0-35.0) pg MCHC (31.0-37.0) g/dL RDW (11.5-15.5) % Plt Count (150-450) k/uL MPV Neutrophils % % Lymphocytes % % Monocytes % % Eosinophils % % Basophils % % Neutrophils # (1.3-7.7) k/uL Lymphocytes # (1.0-4.8) k/uL Monocytes # (0-1.0) k/uL Eosinophils # (0-0.7) k/uL Basophils # (0-0.2) k/uL PT 11.2 (9.0-12.0) sec INR 1.0 (<1.2) APTT 27.7 (22.0-30.0) sec Sodium (137-145) mmol/L Potassium (3.5-5.1) mmol/L Chloride (98-107) mmol/L Carbon Dioxide (22-30) mmol/L Anion Gap mmol/L BUN (7-17) mg/dL Creatinine (0.52-1.04) mg/dL Est GFR (CKD-EPI)AfAm (>60 ml/min/1.73 sqM) Est GFR (CKD-EPI)NonAf (>60 ml/min/1.73 sqM) Glucose (74-99) mg/dL Plasma Lactic Acid Lester (0.7-2.0) mmol/L Calcium (8.4-10.2) mg/dL Total Bilirubin (0.2-1.3) mg/dL AST (14-36) U/L ALT (4-34) U/L Alkaline Phosphatase (38-126) U/L Total Protein (6.3-8.2) g/dL Albumin (3.5-5.0) g/dL Amylase (30-110) U/L Lipase (23-300) U/L Urine Color Colorless Urine Appearance Clear (Clear) Urine pH 6.5 (5.0-8.0) Ur Specific [place] 1.011 (1.001-1.035) Urine Protein Negative (Negative) Urine Glucose (UA) Negative (Negative) Urine Ketones 1+ H (Negative) Urine Blood Negative (Negative) Urine Nitrite Negative (Negative) Urine Bilirubin Negative (Negative) Urine Urobilinogen <2.0 (<2.0) mg/dL Ur Leukocyte Esterase Negative (Negative) Disposition Clinical Impression: Abdominal pain Disposition: HOME SELF-CARE Condition: Good Instructions (If sedation given, give patient instructions): Abdominal Pain (ED) Additional Instructions: Increase your fluid intake. Take Colace daily for constipation. Follow-up with your primary care doctor on Monday. Return to the emergency room with any new or concerning symptoms including fevers, increased pain or persistent vomiting. Prescriptions: Docusate [Colace] 100 mg PO DAILY PRN #30 capsule PRN Reason: Constipation Is patient prescribed a controlled substance at d/c from ED?: No Referrals: Russel Alva MD [Primary Care Provider] - 1-2 days Time of Disposition: 19:17
[2021-12-31] MEDS ORDERED: fentaNYL (PF) 50 MCG/ML 2 ML AMP IVP STA (16:49)
[2021-12-31 17:10] LABS: Basophils % (A) 0 %; Eosinophils # (A) 0.1 k/uL (0-0.7); Eosinophils % (A) 1 %; HGB 14.1 gm/dL (11.4-16.0); Lymphocytes # (A) 1.4 k/uL (1.0-4.8); Lymphocytes % (A) 22 %; MCH 29.8 pg (25.0-35.0); MCHC 34.4 g/dL (31.0-37.0); MCV 86.5 fL (80.0-100.0); Mean Platelet Volume 7.9; Monocytes # (A) 0.4 k/uL (0-1.0); Monocytes % (A) 6 %; Neutrophils # (A) 4.6 k/uL (1.3-7.7); Neutrophils % (A) 70 %; Platelet Count 251 k/uL (150-450); RBC 4.75 m/uL (3.80-5.40); RDW 12.1 % (11.5-15.5); WBC 6.6 k/uL (3.8-10.6)
[2021-12-31 17:20] LABS: ALT 23 U/L (4-34); AST 25 U/L (14-36); African American GFR (CKD) >90 (>60 ml/min/1.73 sqM); Alkaline Phosphatase 128 U/L (38-126); Amylase 47 U/L (30-110); Anion Gap 13 mmol/L; Blood Urea Nitrogen 7 mg/dL (7-17); Calcium 9.6 mg/dL (8.4-10.2); Carbon Dioxide 24 mmol/L (22-30); Chloride 93 mmol/L (98-107); Glucose 102 mg/dL (74-99); Lipase 48 U/L (23-300); Non-African American GFR(CKD) 85 (>60 ml/min/1.73 sqM); Potassium 4.2 mmol/L (3.5-5.1); Sodium 130 mmol/L (137-145); Total Bilirubin 0.8 mg/dL (0.2-1.3); Total Protein 7.7 g/dL (6.3-8.2)
[2021-12-31 17:28] LABS: Partial Thromboplastin Time 27.7 sec (22.0-30.0); Prothrombin Time 11.2 sec (9.0-12.0)
--- NOTE | 2021-12-31 18:07 | CT ---
EXAMINATION TYPE: CT abdomen pelvis w con DATE OF EXAM: 12/31/2021 COMPARISON: 03/30/2021 HISTORY: abdominal pain. hx of diverticulitis CT DLP: 1296.5 mGycm Automated exposure control for dose reduction was used. CONTRAST: Performed with IV Contrast, patient injected with 100 mL of Isovue 300. Images obtained from the diaphragm to the floor the pelvis with the IV contrast. There is mild subsegmental atelectasis at the left lung base. No pleural effusion. Heart size is norm al. No pericardial effusion. Liver spleen stomach and pancreas gallbladder appear intact. The bile du cts are not dilated. There is no adrenal mass. Kidneys show satisfactory contrast opacification. No h ydronephrosis. Ureters are not dilated. No retroperitoneal adenopathy. The bladder distends smoothly. No inguinal hernia. No free fluid in the pelvis. No pelvic mass. There are multiple sigmoid divertic dory. No diverticulitis. There is no mesenteric edema. No ascites or free air. No sign of a bowel obstruction. Appendix not se en. The lumbar vertebrae have normal alignment. No compression fracture. Posterior elements are intac t. Uterus is anteverted. No pelvic mass. The bony pelvis is intact. The hip joints appear intact. Sac roiliac joints appear normal. IMPRESSION: There is some colonic diverticulosis without diverticulitis. There is clearing of the inflammatory ch anges of the proximal sigmoid colon compared to old exam.
[2021-12-31 18:41] LABS: Appearance,Urine Clear (Clear); Bilirubin,Urine Negative (Negative); Blood,Urine Negative (Negative); Color,Urine Colorless; Glucose,Urine (UA) Negative (Negative); Ketones,Urine 1+ (Negative); Leukocyte Esterase,Urine Negative (Negative); Nitrite,Urine Negative (Negative); PH, Urine 6.5 (5.0-8.0); Protein,Urine Negative (Negative); Specific Gravity,Urine 1.011 (1.001-1.035); Urobilinogen,Urine <2.0 mg/dL (<2.0)
[2021-12-31 19:38] VITALS: BP 186/111; PULSE 77; RESP 17; TEMP 97.7
== END 2021-12-31 19:37 | disposition home or self-care (01) ==
LOC: EC 13:57
DX: R10.9 Unspecified abdominal pain (principal); I10 Essential (primary) hypertension; E78.5 Hyperlipidemia, unspecified; F17.200 Nicotine dependence, unspecified, uncomplicated; Z88.1 Allergy status to other antibiotic agents; Z88.0 Allergy status to penicillin; Z88.2 Allergy status to sulfonamides; Z88.5 Allergy status to narcotic agent; Z88.8 Allergy status to other drugs, medicaments and biological substances; Z79.899 Other long term (current) drug therapy
CPT/HCPCS: 99284; 96374; 96375; 36415; 80053; 82150; 83605; 83690; 85025; 85610; 85730; 81003; 74177; J2405; J3010; C9113; Q9967

== ENCOUNTER 2023-08-08 12:54 | Emergency (ER) | payer MEDICARE, OTHER ==
--- NOTE | 2023-08-08 13:01 | ED ---
Chest Pain HPI - General Source: patient, RN notes reviewed Mode of arrival: ambulatory Limitations: no limitations - History of Present Illness MD Complaint: chest pain <Nichelle Lau - Last Filed: 08/08/23 13:02> <Shashank Chicas - Last Filed: 08/08/23 16:43> - General Chief Complaint: Chest Pain Stated Complaint: Chest pain,L shoulder numbness Time Seen by Provider: 08/08/23 12:57 - History of Present Illness Initial Comments: Quick Note: This is a 72-year-old female who presents to the emergency department for chest pain. States that about 30 minutes prior to arrival she started to develop pain in the chest pain with radiation into the neck and left arm. Reports associated shortness of breath. She had a cardiac catheterization about 5 years ago that she states was normal and denies a history of heart attacks. (Nichelle Lau) This is a 72-year-old female who presents to the emergency department after she started experiencing severe pain in the region of her left trapezius muscle. Patient states it started approximately half hour prior to arrival and it was severe to the point where she had a variety of other symptoms. Patient states it radiated down into the shoulder it made her very lightheaded she thought she might pass out and she became very nauseated. Patient denies any vomiting. Patient denies chest pain or palpitation. Patient states her blood pressure was elevated so she took 2.5 mg and Norvasc and eventually took a labetalol. Patient also took a half a Tylenol with codeine and 200 mg of Advil (Shashank Chicas) - Related Data Home Medications Medication Instructions Recorded Confirmed ALPRAZolam [Xanax] 0.25 tab PO BID PRN 10/21/18 03/30/21 amLODIPine BESYLATE [Norvasc] 2.5 mg PO BID 10/21/18 03/30/21 Previous Rx's Medication Instructions Recorded Ertapenem [INVanz] 1 gm IVPB DAILY@2200 #12 each 04/01/21 diphenhydrAMINE [Benadryl] 25 mg PO Q6H PRN cap 04/01/21 Docusate [Colace] 100 mg PO DAILY PRN #30 capsule 12/31/21 Cyclobenzaprine [Flexeril] 10 mg PO TID #20 tab 08/08/23 Ketorolac [Toradol] 10 mg PO Q6HR #15 tab 08/08/23 Allergies Allergy/AdvReac Type Severity Reaction Status Date / Time codeine Allergy Itching Verified 08/08/23 13:16 levofloxacin [From Levaquin] Allergy Rash/Hives Verified 08/08/23 13:16 losartan Allergy Swelling Verified 08/08/23 13:16 metronidazole [From Flagyl] Allergy Unknown Verified 08/08/23 13:16 Penicillins Allergy Rash/Hives Verified 08/08/23 13:16 Sulfa (Sulfonamide Allergy Unknown Verified 08/08/23 13:16 Antibiotics) benazepril [From Lotensin] AdvReac Cough Verified 08/08/23 13:16 Review of Systems ROS Other: All systems not noted in ROS Statement are negative. <Nichelle Lau - Last Filed: 08/08/23 13:02> ROS Other: All systems not noted in ROS Statement are negative. <Shashank Chicas - Last Filed: 08/08/23 16:43> ROS Statement: Those systems with pertinent positive or pertinent negative responses have been documented in the HPI. Past Medical History Past Medical History: Chest Pain / Angina, Hyperlipidemia, Hypertension, Sleep Apnea/CPAP/BIPAP Additional Past Medical History / Comment(s): Diverticulitis, KARSTEN but has not used Cpap for 1 year, recurrent UTIs, L carpal tunnel syndrome, anemia as an infant. History of Any Multi-Drug Resistant Organisms: None Reported Past Surgical History: Appendectomy, Heart Catheterization, Tonsillectomy, Tubal Ligation Additional Past Surgical History / Comment(s): exploratory lap for ovarian cyst, colonoscopies. Past Anesthesia/Blood Transfusion Reactions: Previous Problems w/ Anesthesia Additional Past Anesthesia/Blood Transfusion Reaction / Comment(s): STATES HARD TO WAKE UP AFTER 1 ST COLONOSCOPY Past Psychological History: Anxiety Smoking Status: Current some day smoker, Light tobacco smoker - Past Family History Mother Family Medical History: Cancer, Coronary Artery Disease (CAD), Myocardial Infarction (MD) Additional Family Medical History / Comment(s): Mother is from colon cancer. She had PTCA. Father Family Medical History: Coronary Artery Disease (CAD), Myocardial Infarction (MD), Renal Disease Additional Family Medical History / Comment(s): Father is from renal failure. He had PTCA Sister(s) Family Medical History: No Reported History Brother(s) Family Medical History: Coronary Artery Disease (CAD) Son(s) Family Medical History: No Reported History <Nichelle Lau - Last Filed: 08/08/23 13:02> General Exam <Nichelle Lau - Last Filed: 08/08/23 13:02> <Shashank Chicas - Last Filed: 08/08/23 16:43> - General Exam Comments Initial Comments: Visual Physical Exam Vital signs reviewed General: Well-appearing, nontoxic, no acute distress. Head: Normocephalic, atraumatic Eyes: PERRLA, EOMI ENT: Airway patent Chest: Nonlabored breathing Skin: No visual rash, normal skin tone Neuro: Alert and oriented 3 Musculoskeletal: No gross abnormalities (Nichelle Lau) GENERAL: Patient is well-developed and well-nourished. Patient is nontoxic and well- hydrated and is in mild distress. ENT: Neck is soft and supple. No significant lymphadenopathy is noted. Oropharynx is clear. Moist mucous membranes. Neck has full range of motion without eliciting any pain. EYES: The sclera were anicteric and conjunctiva were pink and moist. Extraocular movements were intact and pupils were equal round and reactive to light. Eyelids were unremarkable. PULMONARY: Unlabored respirations. Good breath sounds bilaterally. No audible rales rhonchi or wheezing was noted. CARDIOVASCULAR: There is a regular rate and rhythm without any murmurs gallops or rubs. ABDOMEN: Soft and nontender with normal bowel sounds. SKIN: Skin is clear with no lesions or rashes and otherwise unremarkable. NEUROLOGIC: Patient is alert and oriented x3. Cranial nerves II through XII are grossly intact. Motor and sensory are also intact. Normal speech, volume and content. Symmetrical smile. NIH is 2 MUSCULOSKELETAL: Normal extremities with adequate strength and full range of motion. No calf tenderness. No swelling LYMPHATICS: No significant lymphadenopathy is noted PSYCHIATRIC: Normal psychiatric evaluation. (Shashank Chicas) Course Vital Signs 08/08/23 08/08/23 08/08/23 13:00 14:01 14:10 Temperature 97.6 F Pulse Rate 96 79 Pulse Rate [ 93 Left Sitting Radial] Respiratory 20 18 Rate Blood Pressure 185/117 193/98 O2 Sat by Pulse 99 96 Oximetry 08/08/23 16:29 Temperature Pulse Rate 76 Pulse Rate [ Left Sitting Radial] Respiratory 18 Rate Blood Pressure 181/93 O2 Sat by Pulse 97 Oximetry Chest Pain MDM <Nichelle Lau - Last Filed: 08/08/23 13:02> - Core Measures AMI Core Measures Followed: Yes <Shashank Chicas - Last Filed: 08/08/23 16:43> - MDM I performed the QuickNote portion of this chart. Signed Nichelle Lau PA-C. (Nichelle Lau) EKG is interpreted by myself. EKG shows a sinus rhythm at 96 bpm parables 168 QRS is 85 QT interval 341 QTc is 395. Patient's EKG shows no ST segment ovation or depression. Was pt. sent in by a medical professional or institution ([facility], MOUTH[employer]ECE [employer], urgent care, hospital, or prison...) When possible be specific @ -No Did you speak to anyone other than the patient for history (EMS, parent, family, police, friend...)? What history was obtained from this source @ -No Did you review nursing and triage notes (agree or disagree)? Why? @ -I reviewed and agree with nursing and triage notes Were old charts reviewed (outside hosp., previous admission, EMS record, old EKG, old radiological studies, urgent care reports/EKG's, prison records)? Report findings @ -No old charts were reviewed Differential Diagnosis (chest pain, altered mental status, abdominal pain women, abdominal pain men, vaginal bleeding, weakness, fever, dyspnea, syncope, headache, dizziness, GI bleed, back pain, seizure, CVA, palpatations, mental health, musculoskeletal)? @ -Differential Musculoskeletal Muscular strain, contusion, ligament sprain, fracture, arthritis, septic arthritis, bursitis, cellulitis, muscle spasm, nerve compression, DVT, arterial occlusion, herpes zoster, electrolyte abnormality, tumor.... This is not meant to be in all inclusive list EKG interpreted by me (3pts min.). @ -As above X-rays interpreted by me (1pt min.). @ -Chest x-ray shows no acute abnormality CT interpreted by me (1pt min.). @ -None done U/S interpreted by me (1pt. min.). @ -None done What testing was considered but not performed or refused? (CT, X-rays, U/S, labs)? Why? @ -None What meds were considered but not given or refused? Why? @ -None Did you discuss the management of the patient with other professionals (professionals i.e. , PA, MOUTHPIECE MAKER, lab, RT, psych nurse, licensed clinical social worker, carton gluing machine operator, teacher, information assurance officer, case management coordinator)? Give summary @ -No Was smoking cessation discussed for >3mins.? @ -No Was critical care preformed (if so, how long)? @ -No Were there social determinants of health that impacted care today? How? (Homelessness, low income, unemployed, alcoholism, drug addiction, transportation, low edu. Level, literacy, decrease access to med. care, longterm, rehab)? @ -No Was there de-escalation of care discussed even if they declined (Discuss DNR or withdrawal of care, Hospice)? DNR status @ -No What co-morbidities impacted this encounter? (DM, HTN, Smoking, COPD, CAD, Cancer, CVA, ARF, Chemo, Hep., AIDS, mental health diagnosis, sleep apnea, morbid obesity)? @ -None Was patient admitted / discharged? Hospital course, mention meds given and route, prescriptions, significant lab abnormalities, going to OR and other pertinent info. @ -Patient received Toradol and Valium in the emergency department and was feeling considerably better. Patient never experienced any chest pain or difficulty breathing. Undiagnosed new problem with uncertain prognosis? @ -No Drug Therapy requiring intensive monitoring for toxicity (Heparin, Nitro, Insulin, Cardizem)? @ -No Were any procedures done? @ -No Diagnosis/symptom? @ -Trapezius muscle strain Acute, or Chronic, or Acute on Chronic? @ -Acute Uncomplicated (without systemic symptoms) or Complicated (systemic symptoms)? @ -Complicated Side effects of treatment? @ -No Exacerbation, Progression, or Severe Exacerbation? @ -No Poses a threat to life or bodily function? How? (Chest pain, [place], MD, pneumonia, PE, COPD, DKA, ARF, appy, cholecystitis, CVA, Diverticulitis, Homicidal, Suicidal, threat to staff... and all critical care pts) @ -No (Chicas,Shashank) Disposition <Nichelle Lau - Last Filed: 08/08/23 13:02> Is patient prescribed a controlled substance at d/c from ED?: No Time of Disposition: 16:42 <Shashank Chicas - Last Filed: 08/08/23 16:43> Clinical Impression: Trapezius muscle strain Disposition: HOME SELF-CARE Condition: Good Instructions (If sedation given, give patient instructions): Muscle Strain (ED) Prescriptions: Cyclobenzaprine [Flexeril] 10 mg PO TID #20 tab Ketorolac [Toradol] 10 mg PO Q6HR #15 tab Referrals: Russel Alva MD [Primary Care Provider] - 1-2 days
--- NOTE | 2023-08-08 14:04 | XR ---
EXAMINATION TYPE: XR chest 2V DATE OF EXAM: 08/08/2023 1:23 PM CLINICAL INDICATION:Female, 72 years old with history of Chest Pain; [facility] COMPARISON: Chest radiographs from 11/16/2014 TECHNIQUE: XR chest 2V Frontal and lateral views of the chest. FINDINGS: Lungs/Pleura: There is no evidence of pleural effusion, focal consolidation, or pneumothorax. Pulmonary vascularity: Unremarkable. Heart/mediastinum: Cardiomediastinal silhouette is unremarkable. Musculoskeletal: No acute osseous pathology. IMPRESSION: No acute cardiopulmonary disease/process.
[2023-08-08 14:16] LABS: INR 0.9 (<1.2); Prothrombin Time 10.1 sec (10.0-12.5)
[2023-08-08 14:20] LABS: Basophils % (A) 0 %; Eosinophils # (A) 0.1 k/uL (0-0.7); Eosinophils % (A) 1 %; HCT 43.5 % (34.0-46.0); HGB 13.7 gm/dL (11.4-16.0); Lymphocytes % (A) 15 %; MCH 28.6 pg (25.0-35.0); MCHC 31.4 g/dL (31.0-37.0); MCV 91.1 fL (80.0-100.0); Mean Platelet Volume 8.2; Monocytes # (A) 0.4 k/uL (0-1.0); Monocytes % (A) 5 %; Neutrophils # (A) 5.1 k/uL (1.3-7.7); Neutrophils % (A) 77 %; Platelet Count 249 k/uL (150-450); RBC 4.78 m/uL (3.80-5.40); RDW 13.6 % (11.5-15.5); WBC 6.5 k/uL (3.8-10.6)
[2023-08-08 14:34] LABS: ALT 38 U/L (4-34); African American GFR (CKD) >90 (>60 ml/min/1.73 sqM); Anion Gap 5 mmol/L; Blood Urea Nitrogen 16 mg/dL (7-17); Carbon Dioxide 28 mmol/L (22-30); Chloride 103 mmol/L (98-107); Glucose 121 mg/dL (74-99); Magnesium 1.6 mg/dL (1.6-2.3); Non-African American GFR(CKD) >90 (>60 ml/min/1.73 sqM); Sodium 136 mmol/L (137-145); Total Bilirubin 0.9 mg/dL (0.2-1.3)
[2023-08-08 14:36] LABS: AST 36 U/L (14-36); Albumin 4.4 g/dL (3.5-5.0); Alkaline Phosphatase 119 U/L (38-126); Calcium 9.4 mg/dL (8.4-10.2); Potassium 4.6 mmol/L (3.5-5.1); Total Protein 7.4 g/dL (6.3-8.2)
[2023-08-08] MEDS: KETOROLAC 15 MG/ML 1 ML VIAL IVP STA (15:04)
[2023-08-08 18:14] VITALS: BP 179/88; PULSE 80; RESP 19; TEMP 97.8
== END 2023-08-08 18:10 | disposition home or self-care (01) ==
LOC: EC 12:54
DX: S29.012A Strain of muscle and tendon of back wall of thorax, initial encounter (principal); F17.200 Nicotine dependence, unspecified, uncomplicated; Z88.5 Allergy status to narcotic agent; Z88.1 Allergy status to other antibiotic agents; Z88.0 Allergy status to penicillin; Z88.2 Allergy status to sulfonamides; Z88.8 Allergy status to other drugs, medicaments and biological substances; X58.XXXA Exposure to other specified factors, initial encounter
CPT/HCPCS: 36415; 93005; 85379; 80053; 83735; 84484; 85025; 85610; 85730; 71046; 99285; 96374; 96375; J3360; J1885